=== PATIENT | female | born 1960 | race Caucasian/White ===

== ENCOUNTER 2019-03-17 13:52 | Emergency (ER) | payer SELFPAY ==
--- NOTE | 2019-03-17 14:45 | RAD ---
EXAM: Chest 2 views: HISTORY: Cough and fever COMPARISON: None. FINDINGS: There is a normal-sized cardiomediastinal silhouette. A cardiac monitoring device projects over the left chest wall. There is no evidence of consolidation, mass, or pleural effusion. The bones are unremarkable. IMPRESSION: No evidence of acute cardiopulmonary disease
== END 2019-03-17 15:10 | disposition home or self-care (01) ==
LOC: ERS 13:52
DX: J10.1 Influenza due to other identified influenza virus with other respiratory manifestations (principal)
CPT/HCPCS: 71046; 87804

== ENCOUNTER 2019-04-19 13:21 | Emergency (ER) | payer SELFPAY ==
--- NOTE | 2019-04-19 14:05 | RAD ---
RIGHT SHOULDER RADIOGRAPHS 3 VIEWS: DATE: 04/19/2019. PROVIDED CLINICAL HISTORY: Pain. FINDINGS: There is no evidence for a fracture or other acute osseous abnormality. If there is persistent clini martine concern, conservative management and followup imaging are advised. IMPRESSION: As above. POS: T[facility]
[2019-04-19] MEDS ORDERED: Ketorolac Tromethamine 60 MG/2 ML VIAL ONE (14:17)
[2019-04-19] MEDS ORDERED: Morphine 4 MG/ML VIAL ONE (14:17)
[2019-04-19] MEDS ORDERED: Ondansetron ODT 4 MG TAB ONE (15:09)
== END 2019-04-19 15:25 | disposition home or self-care (01) ==
LOC: ERS 13:21
DX: M25.511 Pain in right shoulder (principal); I10 Essential (primary) hypertension; F32.9 Major depressive disorder, single episode, unspecified; Z79.899 Other long term (current) drug therapy
CPT/HCPCS: 96372; J1885; J2270; Q0162

== ENCOUNTER 2019-05-22 20:32 | Inpatient (IN) | payer SELFPAY ==
[2019-05-22 21:00] LABS: #Basophils 0.1 thou/uL (0.0-0.2); #Eosinphils 0.6 thou/uL (0.0-0.7); #Lymphocytes 2.3 thou/uL (1.20-3.40); #Monocytes 0.8 thou/uL (0.11-0.59); #Neutrophils 4.7 thou/uL (1.40-6.50); %Basophils 0.6 % (0.0-1.0); %Eosinophils 6.8 % (0.0-10.0); %Lymphocytes 27.4 % (21.0-51.0); %Monocytes 8.9 % (0.0-10.0); %Neutrophils 56.2 % (42.0-75.0); Mean Corpuscular HGB CONC 33.8 g/dL (32.0-36.0); Mean Corpuscular Volume 88.9 fL (78.0-98.0); Mean Platelet Volume 8.5 fL (7.4-10.4); Platelet Count 199 thou/uL (130-400); RBC Distribution Width 11.9 % (11.5-14.5); Red Blood Cell (RBC) Count 4.32 mill/uL (4.20-5.40); White Blood Cell (WBC) Count 8.4 thou/uL (4.8-10.8)
[2019-05-22] MEDS ORDERED: Morphine 4 MG/ML VIAL ONE ×2 (21:05→23:06)
[2019-05-22] MEDS ORDERED: Ketorolac Tromethamine 30 MG/ML VIAL ONE (21:05)
[2019-05-22] MEDS ORDERED: Ondansetron PF 4 MG/2 ML Vial ONE ×2 (21:05→23:06)
[2019-05-22 21:56] LABS: Bacteria/HPF 1+ HPF (None Seen); Bilirubin Negative (Negative); Blood, Urine Negative (Negative); Clarity Clear (Clear); Glucose, Urine (Dipstick) Normal (Negative); Leukocyte 250 Leu/uL (Negative); Nitrite Negative (Negative); Protein, Urine (Dipstick) Negative (Neg-Trace); RBC/HPF 0-3 HPF (0-3); Squamous Epithelial 0-3 HPF (0-3); Urobilinogen Normal mg/dL (Less than 2)
[2019-05-22 22:06] LABS: Albumin 4.6 g/dL (3.5-5.0)
[2019-05-22 22:07] LABS: Chloride 107 mmol/L (98-107); Potassium 3.5 mmol/L (3.5-5.1); Sodium 140 mmol/L (136-145)
[2019-05-22 22:08] LABS: Calcium 9.9 mg/dL (7.8-10.44); Glucose 88 mg/dL (70-105)
[2019-05-22 22:09] LABS: Globulin 3.1 g/dL (2.4-3.5); Protein, Total 7.7 g/dL (6.0-8.3)
[2019-05-22 22:10] LABS: Anion Gap 14 mmol/L (10-20); Bilirubin, Total 0.5 mg/dL (0.2-1.2); Carbon Dioxide 23 mmol/L (22-29)
[2019-05-22 22:11] LABS: Alkaline Phosphatase 111 U/L (40-110)
[2019-05-22 22:12] LABS: BUN (Urea Nitrogen) 16 mg/dL (9.8-20.1); Calc. Creatinine Clearance 0 mL/min (70-130); Estimated GFR-MDRD 69
[2019-05-22 22:13] LABS: AST (SGOT) 23 U/L (5-34)
[2019-05-22 22:14] LABS: ALT (SGPT) 15 U/L (8-55)
[2019-05-22 22:15] LABS: Lipase 1457 U/L (8-78)
[2019-05-23] MEDS ORDERED: Senokot S 8.6-50 MG TAB PO PRN (02:24)
[2019-05-23] MEDS ORDERED: Acetaminophen 325 MG TAB PO PRN (02:24)
--- NOTE | 2019-05-23 02:55 | PDOC.HHP ---
Hospitalist HPI - History of Present Illness Abdominal pain History of Present Illness: 58 yo CF with a history of recurrent pancreatitis presents to ER due to sudden onset abdominal pain. She states that she returned from work yesterday evening and started having stabbing 10/10 pain in her mid abdomen with radiation to the back without any aggravating or relieving factors. The pain gradually worsened and she presented to the ER. Pain was associated with nausea and dry heaves. No vomiting, fever, chills, diarrhea. She reports constipation. No CP, SOB, Cough, wheezing, recent travel history, sick contacts. 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 She recently moved to [place], [place] from [place], [place]. She states she has pancreatitis 1-2 times/yr and that the etiology is unknown. ED Course: Found to have elevated lipase. Diagnosed with pancreatitis and being admitted. Hospitalist ROS - Review of Systems All other systems reviewed; all pertinent +/- noted in HPI/Subj Hospitalist History - Past Medical History Source: patient Gastrointestinal: reports: Peptic ulcer disease, Other (Recurrent pancreatitis) Musculoskeletal: reports: Chronic low back pain - Past Surgical History Past Surgical History: reports: Appendectomy, Cholecystectomy, Hysterectomy, Other (Back surgeries) - Family History Family History: reports: diabetes mellitus (mother), hypertension (father) - Social History Smoking Status: Never smoker Alcohol: reports: Occassional Drugs: reports: none Living Situation: Alone Activity level: independent ambulation - Exam General Appearance: awake alert, ill appearing Eye: PERRL, anicteric sclera ENT: normocephalic atraumatic, no oropharyngeal lesions, moist mucosa Neck: supple, symmetric, no JVD, no thyromegaly, no lymphadenopathy Heart: RRR, no murmur, no gallops, no rubs, normal peripheral pulses Respiratory: CTAB, no wheezes, no rales, no ronchi, normal chest expansion, no tachypnea Gastrointestinal: soft, non-distended, normal bowel sounds, no palpable masses, no guarding, no rigidity, tender to palpation (epigastric and umbilical regions) Extremities: no cyanosis, no clubbing, no edema Skin: normal turgor, no lesions, no rashes Neurological: cranial nerve grossly intact, normal sensation to touch, no weakness, no focal deficits Musculoskeletal: normal tone, normal strength, no muscle wasting Psychiatric: normal affect, normal behavior, A&O x 3 Hospitalist Results - Labs Result Diagrams: 05/22/19 20:52 05/22/19 21:50 Lab results: WBC 8.4 thou/uL (4.8-10.8) 05/22/19 20:52 Hgb 13.0 g/dL (12.0-16.0) 05/22/19 20:52 Hct 38.4 % (36.0-47.0) 05/22/19 20:52 MCV 88.9 fL (78.0-98.0) 05/22/19 20:52 Plt Count 199 thou/uL (130-400) 05/22/19 20:52 Neutrophils % 56.2 % (42.0-75.0) 05/22/19 20:52 Sodium 140 mmol/L (136-145) 05/22/19 21:50 Potassium 3.5 mmol/L (3.5-5.1) 05/22/19 21:50 Chloride 107 mmol/L (98-107) 05/22/19 21:50 Carbon Dioxide 23 mmol/L (22-29) 05/22/19 21:50 BUN 16 mg/dL (9.8-20.1) 05/22/19 21:50 Creatinine 0.84 mg/dL (0.6-1.1) 05/22/19 21:50 Glucose 88 mg/dL (70-105) 05/22/19 21:50 Calcium 9.9 mg/dL (7.8-10.44) 05/22/19 21:50 Total Bilirubin 0.5 mg/dL (0.2-1.2) 05/22/19 21:50 AST 23 U/L (5-34) 05/22/19 21:50 ALT 15 U/L (8-55) 05/22/19 21:50 Alkaline Phosphatase 111 U/L (40-110) H 05/22/19 21:50 Serum Total Protein 7.7 g/dL (6.0-8.3) 05/22/19 21:50 Albumin 4.6 g/dL (3.5-5.0) 05/22/19 21:50 Lipase 1457 U/L (8-78) H 05/22/19 21:50 Urine Ketones Negative mg/dL (Negative) 05/22/19 21:39 Urine Blood Negative (Negative) 05/22/19 21:39 Urine Nitrite Negative (Negative) 05/22/19 21:39 Ur Leukocyte Esterase 250 Gabby/uL (Negative) A 05/22/19 21:39 Urine RBC 0-3 HPF (0-3) 05/22/19 21:39 Urine WBC 11-20 HPF (0-3) A 05/22/19 21:39 Ur Squamous Epith Cells 0-3 HPF (0-3) 05/22/19 21:39 Urine Bacteria 1+ HPF (None Seen) A 05/22/19 21:39 Hospitalist H&P A/P - Problem (1) Pancreatitis Code(s): K85.90 - ACUTE PANCREATITIS WITHOUT NECROSIS OR INFECTION, UNSP Status: Acute Qualifiers: Chronicity: acute Pancreatitis type: unspecified pancreatitis type Acute pancreatitis complication: unspecified Qualified Code(s): K85.90 - Acute pancreatitis without necrosis or infection, unspecified Assessment and Plan: Admit to inpatient status. Expected to stay at least 2 midnights. High risk due to need for IV fluids and monitoring for diet tolerance Clear liquid diet IV LR with KCl GI consult s/p cholecystectomy and denies ETOH use Will obtain lipid panel and IgG subclass Pain control Patient denies melena or hematochezia. PUD may also be responsible for her pain. Will defer to GI regarding possible EGD. 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 However, prior Tramadol prescription was from Mar, 2018 - Plan Plan: CODE STATUS - FULL CODE Sister is health care proxy
[2019-05-23] MEDS: Potassium Chloride 20 MEQ in Lactated Ringer's 1,000 ML IV SCH ×3 (03:40→18:00)
[2019-05-23] MEDS ORDERED: Ondansetron PF 4 MG/2 ML Vial ONE (03:53)
[2019-05-23] MEDS ORDERED: Morphine 2 MG/ML SYRINGE ONE (03:53)
[2019-05-23] MEDS: Ondansetron PF 4 MG/2 ML Vial IVP PRN ×3 (03:55→16:28)
[2019-05-23] MEDS: Morphine 2 MG/ML SYRINGE SLOW IVP PRN ×5 (03:57→23:01)
[2019-05-23 04:06] VITALS: BMI 22.6
[2019-05-23 04:21] LABS: #Eosinphils 0.4 thou/uL (0.0-0.7); #Lymphocytes 1.4 thou/uL (1.20-3.40); #Monocytes 0.7 thou/uL (0.11-0.59); #Neutrophils 5.1 thou/uL (1.40-6.50); %Basophils 0.3 % (0.0-1.0); %Eosinophils 5.3 % (0.0-10.0); %Lymphocytes 18.6 % (21.0-51.0); %Monocytes 9.3 % (0.0-10.0); %Neutrophils 66.5 % (42.0-75.0); Hemoglobin 12.7 g/dL (12.0-16.0); Mean Corpuscular HGB CONC 33.3 g/dL (32.0-36.0); Mean Corpuscular Hemoglobin 30.1 pg (27.0-31.0); Mean Corpuscular Volume 90.4 fL (78.0-98.0); Mean Platelet Volume 8.8 fL (7.4-10.4); Platelet Count 161 thou/uL (130-400); Red Blood Cell (RBC) Count 4.22 mill/uL (4.20-5.40); White Blood Cell (WBC) Count 7.7 thou/uL (4.8-10.8)
[2019-05-23 04:29] LABS: ALT (SGPT) 51 U/L (8-55); AST (SGOT) 103 U/L (5-34); Albumin 3.7 g/dL (3.5-5.0); Alkaline Phosphatase 105 U/L (40-110); Anion Gap 12 mmol/L (10-20); BUN (Urea Nitrogen) 16 mg/dL (9.8-20.1); Bilirubin, Total 0.6 mg/dL (0.2-1.2); Calc. Creatinine Clearance 82 mL/min (70-130); Calcium 8.8 mg/dL (7.8-10.44); Carbon Dioxide 18 mmol/L (22-29); Cardiac Risk 2.2 (Less than 4.5); Chloride 111 mmol/L (98-107); Cholesterol 170 mg/dl (< 200 Desired); Estimated GFR-MDRD 87; Globulin 2.5 g/dL (2.4-3.5); Glucose 104 mg/dL (70-105); HDL Cholesterol 77 mg/dL (>60 Neg Risk); LDL Cholesterol, Calculated 85 mg/dL; Lipase 494 U/L (8-78); Protein, Total 6.2 g/dL (6.0-8.3); Sodium 137 mmol/L (136-145); Triglycerides 39 mg/dL (Less than 150)
[2019-05-23] MEDS: Enoxaparin Sodium 40 MG/0.4 ML SYRINGE SC SCH (08:47)
--- NOTE | 2019-05-23 13:26 | PDOC.HOSPP ---
- Subjective Encounter Date: 05/23/19 Encounter Time: 08:40 Subjective: abd pain and nausea is better this am - Objective Vital Signs & Weight: Vital Signs (12 hours) Temp Pulse Resp BP Pulse Ox 05/23/19 11:39 98.0 F 72 18 138/75 97 05/23/19 08:00 98.3 F 68 20 128/70 96 05/23/19 05:50 98.1 F 68 20 160/74 H 99 Weight Weight 132 lb Result Diagrams: 05/23/19 03:57 05/23/19 03:57 Hospitalist ROS - Medication Medications: Active Medications Generic Name Dose Route Start Last Admin Trade Name Freq PRN Reason Stop Dose Admin Enoxaparin Sodium 40 mg 05/23/19 09:00 05/23/19 08:47 Lovenox SC 40 mg 0900 ROSSY Administration Potassium Chloride 20 meq/ 1,010 mls @ 100 mls/hr 05/23/19 03:00 05/23/19 13: 02 Lactated Ringer's IV Not Given .Q10H6M ROSSY Morphine Sulfate 2 mg 05/23/19 02:53 05/23/19 08:48 Morphine SLOW IVP 2 mg Q4H PRN Administration Severe Pain (7-10) Ondansetron HCl 4 mg 05/23/19 02:24 05/23/19 10:15 Zofran IVP 4 mg Q6H PRN Administration Nausea/Vomiting - Exam General Appearance: awake alert Eye: PERRL, anicteric sclera ENT: no oropharyngeal lesions, moist mucosa Neck: supple, no JVD Heart: RRR, no murmur Respiratory: no wheezes, no rales Gastrointestinal: soft, non-distended, normal bowel sounds Gastrointestinal - other findings: mild epigastric pain Extremities: no cyanosis, no edema Neurological: cranial nerve grossly intact, no focal deficits Psychiatric: normal affect, A&O x 3 Hosp A/P (1) Acute pancreatitis Code(s): K85.90 - ACUTE PANCREATITIS WITHOUT NECROSIS OR INFECTION, UNSP Status: Acute Qualifiers: Pancreatitis type: idiopathic (2) Chronic back pain Code(s): M54.9 - DORSALGIA, UNSPECIFIED; G89.29 - OTHER CHRONIC PAIN Status: Chronic Qualifiers: Back pain location: low back pain (3) GERD (gastroesophageal reflux disease) Code(s): K21.9 - GASTRO-ESOPHAGEAL REFLUX DISEASE WITHOUT ESOPHAGITIS Status: Chronic Qualifiers: Esophagitis presence: esophagitis presence not specified Qualified Code(s) : K21.9 - Gastro-esophageal reflux disease without esophagitis - Plan on iv hydration, morphine and narco prn GI consult will obtain CT abd lipid profile is normal h/o pancreatitis 2x/yr starting from 2009, no alc usage Last BM was on tuesday, will add stool softeners
[2019-05-23] MEDS ORDERED: Bisacodyl 10 MG SUPP PR PRN (13:28)
[2019-05-23] MEDS ORDERED: predniSONE 50 MG TAB PO SCH (20:00)
[2019-05-23] MEDS: Docusate 100 MG CAP PO SCH (20:35)
[2019-05-24] MEDS: Potassium Chloride 20 MEQ in Lactated Ringer's 1,000 ML IV SCH ×3 (00:20→16:00)
[2019-05-24] MEDS ORDERED: predniSONE 50 MG TAB PO SCH ×2 (02:00→08:00)
[2019-05-24] MEDS ORDERED: diphenhydrAMINE 50 MG CAP PO SCH (08:00)
[2019-05-24] MEDS: Docusate 100 MG CAP PO SCH ×2 (08:03→21:11)
[2019-05-24] MEDS: Enoxaparin Sodium 40 MG/0.4 ML SYRINGE SC SCH (08:04)
[2019-05-24] MEDS: Polyethylene Glycol 3350 17 GM Packet PO SCH (08:04)
[2019-05-24] MEDS: Morphine 2 MG/ML SYRINGE SLOW IVP PRN ×3 (08:22→21:11)
[2019-05-24] MEDS: Ondansetron PF 4 MG/2 ML Vial IVP PRN ×3 (08:22→21:13)
--- NOTE | 2019-05-24 09:43 | CT ---
CT OF THE ABDOMEN AND PELVIS WITH AND WITHOUT IV CONTRAST INDICATION: History of chronic pancreatitis now with middle to left upper quadrant abdominal pain wit h nausea and vomiting COMPARISON: None FINDINGS: ABDOMEN: Lung bases: Mild bibasilar atelectasis Liver: There is focal fatty demonstration near the falciform ligament. Gallbladder: Surgically absent Pancreas: There is inflammatory stranding surrounding the pancreas. There is enhancement of the pancr eatic parenchyma. No areas of cystic necrosis or peripancreatic fluid collection is demonstrated. Adrenal glands: Normal. Spleen: Normal. Kidneys and ureters: Small cyst is seen involving upper pole right kidney. No hydronephrosis is demon strated. Vasculature: There are mild vascular calcifications seen involving the visualized vasculature. Lymph nodes:No lymphadenopathy. Free fluid in abdomen:A small amount of fluid is seen within the anterior pararenal space. There is m ild edema involving the central mesenteric root. PELVIS: Small and large bowel: There is a mild amount retained stool within colon. Appendix:Not definitely seen Bladder: Partially decompressed Rectal and perirectal soft tissues:Normal. Reproductive structures: Surgically absent Free fluid in pelvis: Mild free fluid Lymphadenopathy pelvis: No lymphadenopathy is evident. Osseous structures: There is postsurgical change of an L5-S1 anterior and posterior interbody fusion. No acute fracture or subluxation demonstrated. There is scattered degenerative and osteoarthritic changes. Soft tissues:Normal. IMPRESSION: 1. Noncomplicated acute pancreatitis 2. Mild bibasilar atelectasis. 3. Focal verification of the false form ligament. 4. Cholecystectomy, appendectomy and hysterectomy
--- NOTE | 2019-05-24 10:50 | CON ---
DATE OF CONSULTATION: 05/23/2019 REASON FOR CONSULTATION: Abdominal pain, nausea, vomiting, and evidence of pancreatitis. HISTORY OF PRESENT ILLNESS: Ms. Cynthia Joyce is a very pleasant 58-year-old female who moved to [facility] about September of 2018. She was actually living in [place] before for a long time. The patient has had a gallbladder surgery in the for gallstones. The patient has done well for the next almost 20 years. Since 2013, she has had recurrent pancreatitis of unknown etiology. She has been hospitalized several times. She tells me that once or twice in a year, she had pancreatitis and gets admitted to the hospital. The last time she was in [facility] was in [facility] in 2016. She tells me she had an EGD done and was told to have a stomach ulcer. She was traveling in [place] in 2018 and she was hospitalized twice in [place]. Again, there is no etiology for the pancreatitis . The patient has had a CAT scan done in the past. The patient was doing well until yesterday afternoon around 3 p.m. She started having abdominal pain over the epigastric area and going towards the back. She had nausea and vomiting. No history of any fever or chills. It is the same kind of pain she gets every time she gets pancreatitis. The patient was told to have pancreatitis of unknown etiology before. The patient seldom drinks alcohol. Last time she had a glass of wine was at Thanksgiving time. She usually does not drink alcohol. She is not taking any medications to cause the pancreatitis. She also has hyperlipidemia. Her lipase was markedly elevated on admission yesterday. The lipase was 1457 yesterday, today dropping to 494. Amylase 242. Her liver function tests yesterday were actually normal with the AST of 23, ALT 15, alkaline phosphatase 111. Today, the AST has gone up to 103. She is actually feeling a little better today although she continued to have abdominal pain, but not as bad as before. She had no nausea or vomiting today. No relevant history. ALLERGIES: ALLERGIC TO IODINE AND CODEINE. SOCIAL HISTORY: The patient does not smoke. She seldom drinks alcohol. No history of drug use. MEDICAL ILLNESSES: None except for recurrent pancreatitis. No history of diabetes, hypertension, or asthma. PAST SURGICAL HISTORY: 1. Status post appendectomy. 2. Status post cholecystectomy. 3. Status post hysterectomy. Other surgeries include EGD x2 for ulcer disease in the past. FAMILY HISTORY: Mother, sister and father all had their gallbladder removed. Mother has diabetes mellitus. No family history of any cancer. MEDICATIONS: At home, none. REVIEW OF SYSTEMS: 10-point of system review. CONSTITUTIONAL: No history any fever. No history of weight loss, has good exercise tolerance. HEAD: No chronic headache. No dizziness. EYES: No impaired vision. No diplopia. EARS: No hearing loss. No bleeding. NOSE: No nosebleed. THROAT: No sore throat or dysphagia. NECK: No stiffness or limitation of movement. BREASTS: No breast masses or discharge. LUNGS: No chronic coughing, hemoptysis, dyspnea. CARDIOVASCULAR: No chest pain. No palpitation, dyspnea, orthopnea, PND. : No dysuria or hematuria. MUSCULOSKELETAL: Nonrelevant. NEURO: Nonrelevant. ENDOCRINE: Nonrelevant. HEMATOLOGICAL: Nonrelevant. PSYCHIATRIC: Nonrelevant. PHYSICAL EXAMINATION: GENERAL: Appears comfortable, in no acute distress. She is a good historian. VITAL SIGNS: Afebrile. Pulse is 72, blood pressure 138/75. HEENT: Conjunctivae are clear. NECK: Supple. No adenitis or thyromegaly noted. CARDIOVASCULAR: First and second heart sounds heard. LUNGS: Clear to auscultation. ABDOMEN: Soft. Abdomen is nondistended. Abdomen is tender over the epigastric area and periumbilical area. There is no rebound or guarding. Bowel sounds are active. EXTREMITIES: Reveal no edema. LABORATORY DATA: Lab data shows normal chem 7, BUN 16, creatinine 0.69, glucose 104, calcium 8.8, bilirubin 0.6. AST has gone up to 103 today, ALT 51, alkaline phosphatase 105, albumin is 3.7. LDL is 85, HDL is 77. Amylase is 242, lipase 1457 yesterday, dropping to 494 today. CLINICAL IMPRESSION: 1. A 58-year-old female with previous cholecystectomy for gallstones in . She has had recurrent episodes of pancreatitis over the last 6 years. She has had at least one or two episodes every year. Last episode was in 2019 and hospitalized in [place]. She was told to have pancreatitis of unknown etiology. There is also a possibility of the patient passing microlithiasis common bile duct which could also account for pancreatitis. 2. Previous cholecystectomy. 3. Appendectomy. 4. Hysterectomy. 5. History of peptic ulcer and had an EGD done in [facility] in 2017. RECOMMENDATION: 1. N.p.o. 2. IV fluids. 3. Analgesics. 4. Follow up LFTs. 5. Consider MRCP to rule out any biliary tract disease, common bile duct stone. Job ID: [id number]
--- NOTE | 2019-05-24 11:34 | PDOC.HOSPP ---
- Subjective Encounter Date: 05/24/19 Encounter Time: 09:00 Subjective: abd pain is better is drinking contrast for CT is on prednisone for iodine allergy - Objective Vital Signs & Weight: Vital Signs (12 hours) Temp Pulse Resp BP Pulse Ox 05/24/19 08:23 96 05/24/19 04:00 97.3 F L 74 16 130/70 96 05/24/19 00:00 98.6 F 86 16 144/78 H 96 Weight Weight 132 lb Result Diagrams: 05/23/19 03:57 05/23/19 03:57 Hospitalist ROS - Medication Medications: Active Medications Generic Name Dose Route Start Last Admin Trade Name Freq PRN Reason Stop Dose Admin Docusate Sodium 100 mg 05/23/19 21:00 05/24/19 08:03 Colace PO 100 mg BID ROSSY Administration Enoxaparin Sodium 40 mg 05/23/19 09:00 05/24/19 08:04 Lovenox SC 40 mg 0900 ROSSY Administration Potassium Chloride 20 meq/ 1,010 mls @ 100 mls/hr 05/23/19 03:00 05/24/19 03: 40 Lactated Ringer's IV 1,010 mls .Q10H6M ROSSY Administration Morphine Sulfate 2 mg 05/23/19 02:53 05/24/19 08:22 Morphine SLOW IVP 2 mg Q4H PRN Administration Severe Pain (7-10) Ondansetron HCl 4 mg 05/23/19 02:24 05/24/19 08:22 Zofran IVP 4 mg Q6H PRN Administration Nausea/Vomiting Pantoprazole Sodium 40 mg 05/24/19 09:00 05/24/19 08:03 Protonix PO 40 mg DAILY ROSSY Administration Polyethylene Glycol 17 gm 05/24/19 09:00 05/24/19 08:04 Miralax PO 17 gm DAILY ROSSY Administration - Exam General Appearance: awake alert Eye: PERRL, anicteric sclera ENT: no oropharyngeal lesions, moist mucosa Neck: supple, no JVD Heart: RRR, no murmur Respiratory: no wheezes, no rales Gastrointestinal: soft, non-distended, normal bowel sounds, no guarding, no rigidity Extremities: no cyanosis, no edema Neurological: cranial nerve grossly intact, no focal deficits Psychiatric: normal affect, A&O x 3 Hosp A/P (1) Acute pancreatitis Code(s): K85.90 - ACUTE PANCREATITIS WITHOUT NECROSIS OR INFECTION, UNSP Status: Acute Qualifiers: Pancreatitis type: idiopathic (2) Chronic back pain Code(s): M54.9 - DORSALGIA, UNSPECIFIED; G89.29 - OTHER CHRONIC PAIN Status: Chronic Qualifiers: Back pain location: low back pain (3) GERD (gastroesophageal reflux disease) Code(s): K21.9 - GASTRO-ESOPHAGEAL REFLUX DISEASE WITHOUT ESOPHAGITIS Status: Chronic Qualifiers: Esophagitis presence: esophagitis presence not specified Qualified Code(s) : K21.9 - Gastro-esophageal reflux disease without esophagitis - Plan on iv hydration, morphine and narco prn CT abd shows findings of simple pancreatitis, no necrosis or phlegmon lipid profile is normal h/o pancreatitis 2x/yr starting from 2009, no alc usage hemostable oral fat free diet
[2019-05-24] MEDS ORDERED: Iopamidol-370 76% 500 ML 1 ML ONE (13:40)
--- NOTE | 2019-05-24 18:35 | PRG ---
DATE OF SERVICE: 05/24/2019 SUBJECTIVE: This is a 58-year-old female with previous cholecystectomy in 1989, for gallstones. The patient has had recurrent pancreatitis for nearly 10 years. The last episode was in 2019, when she was in [place]. She does not drink alcohol. Her LFTs remain . She had abdominal CAT scan done, which revealed no pathology except for peripancreatic inflammatory changes. Abdominal pain is getting better, but not completely gone. She had no nausea, no vomiting. OBJECTIVE: VITAL SIGNS: Afebrile, pulse is 81, blood pressure 154/83. HEENT: Conjunctivae are clear. CARDIOVASCULAR: Within normal limits. LUNGS: Within normal limits. GI: Abdomen is soft. Abdomen is nondistended. Abdomen is tender over the epigastric area without rebound or guarding. No organomegaly. Bowel sounds normal. CLINICAL IMPRESSION: 1. Pancreatitis, recurrent. Abdominal CAT scan negative today. Recommend to follow up amylase and lipase. 2. Diet as tolerated. Job ID: [id number]
[2019-05-25] MEDS: Morphine 2 MG/ML SYRINGE SLOW IVP PRN ×5 (01:20→17:56)
[2019-05-25] MEDS: Potassium Chloride 20 MEQ in Lactated Ringer's 1,000 ML IV SCH ×3 (02:40→23:00)
[2019-05-25] MEDS: Ondansetron PF 4 MG/2 ML Vial IVP PRN ×3 (06:08→20:15)
[2019-05-25 08:52] LABS: #Eosinphils 0.1 thou/uL (0.0-0.7); #Monocytes 0.7 thou/uL (0.11-0.59); #Neutrophils 6.6 thou/uL (1.40-6.50); %Basophils 0.4 % (0.0-1.0); %Eosinophils 1.3 % (0.0-10.0); %Neutrophils 70.3 % (42.0-75.0); Mean Corpuscular HGB CONC 34.3 g/dL (32.0-36.0); Mean Corpuscular Hemoglobin 30.9 pg (27.0-31.0); Mean Corpuscular Volume 90.3 fL (78.0-98.0); Mean Platelet Volume 8.9 fL (7.4-10.4); Platelet Count 178 thou/uL (130-400); RBC Distribution Width 11.9 % (11.5-14.5); Red Blood Cell (RBC) Count 3.88 mill/uL (4.20-5.40); White Blood Cell (WBC) Count 9.4 thou/uL (4.8-10.8)
[2019-05-25] MEDS: Enoxaparin Sodium 40 MG/0.4 ML SYRINGE SC SCH (08:57)
[2019-05-25 09:13] LABS: ALT (SGPT) 26 U/L (8-55); AST (SGOT) 18 U/L (5-34); Albumin 3.2 g/dL (3.5-5.0); Alkaline Phosphatase 91 U/L (40-110); Anion Gap 9 mmol/L (10-20); BUN (Urea Nitrogen) 15 mg/dL (9.8-20.1); Bilirubin, Total 0.3 mg/dL (0.2-1.2); Calc. Creatinine Clearance 72 mL/min (70-130); Calcium 9.4 mg/dL (7.8-10.44); Carbon Dioxide 27 mmol/L (22-29); Chloride 108 mmol/L (98-107); Estimated GFR-MDRD 74; Globulin 2.6 g/dL (2.4-3.5); Glucose 109 mg/dL (70-105); Potassium 4.4 mmol/L (3.5-5.1); Protein, Total 5.8 g/dL (6.0-8.3); Sodium 140 mmol/L (136-145)
[2019-05-25] MEDS: Docusate 100 MG CAP PO SCH ×2 (10:19→20:14)
[2019-05-25] MEDS: Polyethylene Glycol 3350 17 GM Packet PO SCH (10:19)
[2019-05-25] MEDS: HYDROcodone/Acetaminophen 5/325 mg Tablet PO PRN ×2 (12:07→20:14)
[2019-05-25 13:37] LABS: IgG Subclass 1 248 mg/dL (248-810); IgG Subclass 2 221 mg/dL (130-555); IgG Subclass 3 36 mg/dL (15-102); Immunoglobulin - G (Sendout) 552 mg/dL (700-1600)
--- NOTE | 2019-05-25 16:36 | PDOC.HOSPP ---
- Subjective Encounter Date: 05/25/19 Encounter Time: 08:00 Subjective: c/o abdominal worsening after eating yogurt last evening, has spasms more than pain no nausea or vomiting. is ambulating in room - Objective Vital Signs & Weight: Vital Signs (12 hours) Temp Pulse Resp BP Pulse Ox 05/25/19 16:02 97.8 F 65 18 166/88 H 98 05/25/19 08:09 97.8 F 72 14 156/78 H 98 Weight Weight 132 lb I&O: 05/24/19 05/25/19 05/26/19 06:59 06:59 06:59 Intake Total 1380 Balance 1380 Result Diagrams: 05/25/19 08:38 05/25/19 08:38 Hospitalist ROS - Medication Medications: Active Medications Generic Name Dose Route Start Last Admin Trade Name Freq PRN Reason Stop Dose Admin Hydrocodone Bitart/Acetaminophen 1 tab 05/23/19 21:14 05/25/19 12:07 [place] 5/325 PO 1 tab Q4H PRN Administration Moderate Pain (4-6) Bisacodyl 10 mg 05/23/19 13:28 05/25/19 12:07 Dulcolax [place] 10 mg Q8H PRN Administration Constipation Docusate Sodium 100 mg 05/23/19 21:00 05/25/19 10:19 Colace PO Not Given BID ROSSY Enoxaparin Sodium 40 mg 05/23/19 09:00 05/25/19 08:57 Lovenox SC 40 mg 0900 ROSSY Administration Potassium Chloride 20 meq/ 1,010 mls @ 100 mls/hr 05/23/19 03:00 05/25/19 15: 18 Lactated Ringer's IV 1,010 mls .Q10H6M ROSSY Administration Morphine Sulfate 2 mg 05/23/19 02:53 05/25/19 14:09 Morphine SLOW IVP 2 mg Q4H PRN Administration Severe Pain (7-10) Ondansetron HCl 4 mg 05/23/19 02:24 05/25/19 15:22 Zofran IVP 4 mg Q6H PRN Administration Nausea/Vomiting Pantoprazole Sodium 40 mg 05/24/19 09:00 05/25/19 08:56 Protonix PO 40 mg DAILY ROSSY Administration Polyethylene Glycol 17 gm 05/24/19 09:00 05/25/19 10:19 Miralax PO Not Given DAILY ROSSY - Exam General Appearance: awake alert Eye: PERRL, anicteric sclera ENT: no oropharyngeal lesions, moist mucosa Neck: supple, no JVD Heart: RRR, no murmur Respiratory: no wheezes, no rales Gastrointestinal: soft, non-distended, normal bowel sounds, no guarding, no rigidity Extremities: no cyanosis, no edema Neurological: cranial nerve grossly intact, no focal deficits Psychiatric: normal affect, A&O x 3 Hosp A/P (1) Acute pancreatitis Code(s): K85.90 - ACUTE PANCREATITIS WITHOUT NECROSIS OR INFECTION, UNSP Status: Acute Qualifiers: Pancreatitis type: idiopathic (2) Chronic back pain Code(s): M54.9 - DORSALGIA, UNSPECIFIED; G89.29 - OTHER CHRONIC PAIN Status: Chronic Qualifiers: Back pain location: low back pain (3) GERD (gastroesophageal reflux disease) Code(s): K21.9 - GASTRO-ESOPHAGEAL REFLUX DISEASE WITHOUT ESOPHAGITIS Status: Chronic Qualifiers: Esophagitis presence: esophagitis presence not specified Qualified Code(s) : K21.9 - Gastro-esophageal reflux disease without esophagitis - Plan on iv hydration, morphine and narco prn, bentyl tid. CT abd shows findings of simple pancreatitis, no necrosis or phlegmon lipid profile is normal h/o pancreatitis 2x/yr starting from 2009, no alc usage hemostable full liquid fat free diet
[2019-05-25] MEDS: Dicyclomine 20 MG TAB PO SCH (20:14)
[2019-05-26] MEDS: Morphine 2 MG/ML SYRINGE SLOW IVP PRN ×5 (00:01→20:30)
[2019-05-26] MEDS: Potassium Chloride 20 MEQ in Lactated Ringer's 1,000 ML IV SCH ×4 (00:31→20:28)
[2019-05-26] MEDS: Ondansetron PF 4 MG/2 ML Vial IVP PRN ×2 (06:09→13:09)
[2019-05-26] MEDS: Dicyclomine 20 MG TAB PO SCH ×3 (08:12→20:30)
[2019-05-26] MEDS: Enoxaparin Sodium 40 MG/0.4 ML SYRINGE SC SCH (08:12)
[2019-05-26] MEDS: HYDROcodone/Acetaminophen 5/325 mg Tablet PO PRN (08:13)
[2019-05-26] MEDS: Polyethylene Glycol 3350 17 GM Packet PO SCH (10:38)
[2019-05-26] MEDS: Docusate 100 MG CAP PO SCH ×2 (10:38→20:29)
--- NOTE | 2019-05-26 13:25 | PDOC.HOSPP ---
- Subjective Encounter Date: 05/26/19 Encounter Time: 11:00 Subjective: still c/o abd pain on full liquid diet but is comfortable eating jello - Objective Vital Signs & Weight: Vital Signs (12 hours) Temp Pulse Resp BP Pulse Ox 05/26/19 07:13 97.9 F 60 17 147/80 H 96 Weight Weight 132 lb I&O: 05/25/19 05/26/19 05/27/19 06:59 06:59 07:59 Intake Total 2580 Balance 2580 Result Diagrams: 05/25/19 08:38 05/25/19 08:38 Hospitalist ROS - Medication Medications: Active Medications Generic Name Dose Route Start Last Admin Trade Name Freq PRN Reason Stop Dose Admin Hydrocodone Bitart/Acetaminophen 1 tab 05/23/19 21:14 05/26/19 08:13 [place] 5/325 PO 1 tab Q4H PRN Administration Moderate Pain (4-6) Bisacodyl 10 mg 05/23/19 13:28 05/25/19 12:07 Dulcolax [place] 10 mg Q8H PRN Administration Constipation Dicyclomine HCl 20 mg 05/25/19 21:00 05/26/19 08:12 Bentyl PO 20 mg TID ROSSY Administration Docusate Sodium 100 mg 05/23/19 21:00 05/26/19 10:38 Colace PO Not Given BID ROSSY Enoxaparin Sodium 40 mg 05/23/19 09:00 05/26/19 08:12 Lovenox SC 40 mg 0900 ROSSY Administration Potassium Chloride 20 meq/ 1,010 mls @ 100 mls/hr 05/23/19 03:00 05/26/19 11: 19 Lactated Ringer's IV 1,010 mls .Q10H6M ROSSY Administration Morphine Sulfate 2 mg 05/23/19 02:53 05/26/19 10:45 Morphine SLOW IVP 2 mg Q4H PRN Administration Severe Pain (7-10) Ondansetron HCl 4 mg 05/23/19 02:24 05/26/19 13:09 Zofran IVP 4 mg Q6H PRN Administration Nausea/Vomiting Pantoprazole Sodium 40 mg 05/24/19 09:00 05/26/19 08:12 Protonix PO 40 mg DAILY ROSSY Administration Polyethylene Glycol 17 gm 05/24/19 09:00 05/26/19 10:38 Miralax PO Not Given DAILY ROSSY - Exam General Appearance: awake alert Eye: PERRL, anicteric sclera ENT: no oropharyngeal lesions, moist mucosa Neck: supple, no JVD Heart: RRR, no murmur Respiratory: no wheezes, no rales Gastrointestinal: soft, non-distended, normal bowel sounds, no guarding, no rigidity Extremities: no cyanosis, no edema Skin: normal turgor, no rashes Neurological: cranial nerve grossly intact, no focal deficits Hosp A/P (1) Acute pancreatitis Code(s): K85.90 - ACUTE PANCREATITIS WITHOUT NECROSIS OR INFECTION, UNSP Status: Acute Qualifiers: Pancreatitis type: idiopathic (2) Chronic back pain Code(s): M54.9 - DORSALGIA, UNSPECIFIED; G89.29 - OTHER CHRONIC PAIN Status: Chronic Qualifiers: Back pain location: low back pain (3) GERD (gastroesophageal reflux disease) Code(s): K21.9 - GASTRO-ESOPHAGEAL REFLUX DISEASE WITHOUT ESOPHAGITIS Status: Chronic Qualifiers: Esophagitis presence: esophagitis presence not specified Qualified Code(s) : K21.9 - Gastro-esophageal reflux disease without esophagitis - Plan on iv hydration, morphine and narco prn, bentyl tid. CT abd shows findings of simple pancreatitis, no necrosis or phlegmon lipid profile is normal h/o pancreatitis 2x/yr starting from 2009, no alc usage hemostable full liquid fat free diet
[2019-05-26] MEDS: Bisacodyl 10 MG SUPP PR SCH ×2 (14:29→16:23)
--- NOTE | 2019-05-26 14:58 | PRG ---
DATE OF SERVICE: 05/26/2019 SUBJECTIVE: This is a 58-year-old female with recurrent pancreatitis over the last several years. Hospitalized for abdominal pain, nausea, and vomiting evidence of pancreatitis. She was n.p.o. for nearly 48 hours and subsequently soft diet. She was not able to tolerate diet very well. Still having abdominal pain and nausea. She is not passing any flatus. Although she was given some Dulcolax suppositories and Colace and MiraLAX, she has had no stool, not passing any flatus. Abdominal pain predominantly was in the epigastric area. She also has some cramping pain off and on. PHYSICAL EXAMINATION: VITAL SIGNS: Afebrile, pulse is 60, blood pressure 147/80. HEENT: Conjunctivae are clear. CARDIOVASCULAR SYSTEM: First and second heart sounds heard. LUNGS: Clear to auscultation. ABDOMEN: Soft. No organomegaly. Abdomen is nondistended. Abdomen is tender over the epigastric area. There is no rebound or guarding. She has normal bowel sounds. CLINICAL IMPRESSION: 1. Acute pancreatitis. 2. Ileus. 3. Previous cholecystectomy. RECOMMENDATIONS: 1. Stay on clear liquid diet. 2. Dulcolax suppositories twice a day. 3. May add Reglan . Job ID: [id number]
[2019-05-27] MEDS: Bisacodyl 10 MG SUPP PR SCH ×4 (00:14→23:54)
[2019-05-27] MEDS: Morphine 2 MG/ML SYRINGE SLOW IVP PRN ×5 (00:20→20:18)
[2019-05-27] MEDS: Ondansetron PF 4 MG/2 ML Vial IVP PRN ×3 (06:24→20:28)
[2019-05-27] MEDS: Potassium Chloride 20 MEQ in Lactated Ringer's 1,000 ML IV SCH (07:50)
[2019-05-27] MEDS: Docusate 100 MG CAP PO SCH ×2 (07:52→20:18)
[2019-05-27] MEDS: Dicyclomine 20 MG TAB PO SCH ×3 (07:52→20:18)
[2019-05-27] MEDS: Enoxaparin Sodium 40 MG/0.4 ML SYRINGE SC SCH (07:52)
[2019-05-27] MEDS: Polyethylene Glycol 3350 17 GM Packet PO SCH (07:53)
--- NOTE | 2019-05-27 08:46 | PRG ---
DATE OF SERVICE: 05/25/2019 HISTORY: This is a very pleasant 58-year-old female with previous cholecystectomy more than 30 years ago. The patient also has recurrent pancreatitis. She had abdominal CAT scan, which revealed no pathology. Her common bile duct . She was started full liquid diet, but she has worsening abdominal pain, and she is back to clear liquid diet. She is also on pain medicine [id number]. She is not passing any flatus until this morning. She passed a small amount of flatus. She had no stool. No nausea, no vomiting. The abdominal pain is slightly better than when she came in. PHYSICAL EXAMINATION: GENERAL: Appears comfortable, in no distress. VITAL SIGNS: Afebrile, pulse is 72, and blood pressure is 156/78. HEENT: Conjunctivae are clear. NECK: Supple. CARDIOVASCULAR: Normal. LUNGS: Clear to auscultation. ABDOMEN: Soft and nondistended. Abdomen is friction paint machine tender over the epigastric area. There is no rebound or guarding. LABORATORY DATA: WBC 9400, hemoglobin 12, hematocrit 32.1, platelet count 178,000, polymorphs 70, and lymphocytes 21. Serum chemistry shows normal liver function test. Bilirubin is 0.3, AST 18, ALT 26, alkaline phosphatase 91. Glucose 109. Lytes are normal. CLINICAL IMPRESSION: Recurrent pancreatitis, unknown etiology. The patient is making slow but steady progress. She is still having abdominal pain. RECOMMENDATION: We will limit her oral intake to clear liquid diet and advance diet slowly once the abdominal pain subsides. We would not hurry up to advance diet to regular diet until abdominal pain actually resolves. I did talk to Ms. Joyce and explained to her that she needs to go slow on her diet and stay on Jello, broth, and some juice for the next 24 hours. Once she gets better she can slowly advance diet. Job ID: [id number]
[2019-05-27 10:55] LABS: #Basophils 0.1 thou/uL (0.0-0.2); #Eosinphils 0.5 thou/uL (0.0-0.7); #Lymphocytes 1.9 thou/uL (1.20-3.40); #Monocytes 0.6 thou/uL (0.11-0.59); #Neutrophils 4.1 thou/uL (1.40-6.50); %Eosinophils 7.1 % (0.0-10.0); %Lymphocytes 26.5 % (21.0-51.0); %Monocytes 8.4 % (0.0-10.0); %Neutrophils 56.9 % (42.0-75.0); Hemoglobin 13.5 g/dL (12.0-16.0); Mean Corpuscular HGB CONC 33.6 g/dL (32.0-36.0); Mean Corpuscular Hemoglobin 29.9 pg (27.0-31.0); Mean Corpuscular Volume 89.1 fL (78.0-98.0); Mean Platelet Volume 8.2 fL (7.4-10.4); Platelet Count 251 thou/uL (130-400); RBC Distribution Width 11.6 % (11.5-14.5); Red Blood Cell (RBC) Count 4.52 mill/uL (4.20-5.40); White Blood Cell (WBC) Count 7.2 thou/uL (4.8-10.8)
[2019-05-27 11:13] LABS: ALT (SGPT) 20 U/L (8-55); AST (SGOT) 14 U/L (5-34); Albumin 3.6 g/dL (3.5-5.0); Alkaline Phosphatase 97 U/L (40-110); Anion Gap 13 mmol/L (10-20); BUN (Urea Nitrogen) 6 mg/dL (9.8-20.1); Bilirubin, Total 0.4 mg/dL (0.2-1.2); Calc. Creatinine Clearance 80 mL/min (70-130); Calcium 9.4 mg/dL (7.8-10.44); Carbon Dioxide 22 mmol/L (22-29); Chloride 105 mmol/L (98-107); Estimated GFR-MDRD 84; Glucose 99 mg/dL (70-105); Protein, Total 6.6 g/dL (6.0-8.3); Sodium 136 mmol/L (136-145)
[2019-05-27 12:21] LABS: Amphetamine Not Detected (NotDetected); Barbiturates Screen Not Detected (NotDetected); Benzodiazepine Screen Not Detected (NotDetected); Cocaine Metabolite Screen Not Detected (NotDetected); Medtox Control Line Valid? VALID (VALID); Medtox Reader # READER 1; Methadone Not Detected (NotDetected); Methamphetamine Not Detected (NotDetected); Opiate Screen Detected (NotDetected); Oxycodone Screen Not Detected (NotDetected); Phencyclidine (PCP) Not Detected (NotDetected); THC/Cannabinoid Screen Not Detected (NotDetected); Tricyclic Screen Not Detected (NotDetected)
--- NOTE | 2019-05-27 13:07 | PDOC.HOSPP ---
- Subjective Encounter Date: 05/27/19 Encounter Time: 11:00 Subjective: c/o constipation mild nausea abd pain is better - Objective Vital Signs & Weight: Vital Signs (12 hours) Temp Pulse Resp BP Pulse Ox 05/27/19 07:41 98.1 F 62 16 156/88 H 98 05/27/19 04:39 66 18 155/91 H Weight Weight 132 lb I&O: 05/26/19 05/27/19 05/28/19 05:59 06:59 06:59 Intake Total Balance Result Diagrams: 05/27/19 10:40 05/27/19 10:40 Hospitalist ROS - Medication Medications: Active Medications Generic Name Dose Route Start Last Admin Trade Name Freq PRN Reason Stop Dose Admin Hydrocodone Bitart/Acetaminophen 1 tab 05/23/19 21:14 05/26/19 08:13 [place] 5/325 PO 1 tab Q4H PRN Administration Moderate Pain (4-6) Bisacodyl 10 mg 05/26/19 23:59 05/27/19 07:52 Dulcolax LA 10 mg 0800,1600,2359 ROSSY Administration Dicyclomine HCl 20 mg 05/25/19 21:00 05/27/19 07:52 Bentyl PO 20 mg TID ROSSY Administration Docusate Sodium 100 mg 05/23/19 21:00 05/27/19 07:52 Colace PO Not Given BID ROSSY Enoxaparin Sodium 40 mg 05/23/19 09:00 05/27/19 07:52 Lovenox SC 40 mg 0900 ROSSY Administration Potassium Chloride 20 meq/ 1,010 mls @ 100 mls/hr 05/23/19 03:00 05/27/19 07: 50 Lactated Ringer's IV 1,010 mls .Q10H6M ROSSY Administration Morphine Sulfate 2 mg 05/23/19 02:53 05/27/19 10:28 Morphine SLOW IVP 2 mg Q4H PRN Administration Severe Pain (7-10) Ondansetron HCl 4 mg 05/23/19 02:24 05/27/19 06:24 Zofran IVP 4 mg Q6H PRN Administration Nausea/Vomiting Pantoprazole Sodium 40 mg 05/24/19 09:00 05/27/19 07:52 Protonix PO 40 mg DAILY ROSSY Administration Polyethylene Glycol 17 gm 05/24/19 09:00 05/27/19 07:53 Miralax PO Not Given DAILY ROSSY Sodium Chloride 10 ml 05/26/19 21:00 05/27/19 07:53 Flush - Normal Saline IVF Not Given Q12HR ROSSY - Exam General Appearance: awake alert Eye: PERRL, anicteric sclera ENT: no oropharyngeal lesions, moist mucosa Neck: supple, no JVD Heart: RRR, no murmur Respiratory: no wheezes, no rales Gastrointestinal: soft, non-distended, normal bowel sounds, no guarding, no rigidity Extremities: no cyanosis, no edema Neurological: cranial nerve grossly intact, no focal deficits Psychiatric: normal affect, A&O x 3 Hosp A/P (1) Acute pancreatitis Code(s): K85.90 - ACUTE PANCREATITIS WITHOUT NECROSIS OR INFECTION, UNSP Status: Acute Qualifiers: Pancreatitis type: idiopathic (2) Chronic back pain Code(s): M54.9 - DORSALGIA, UNSPECIFIED; G89.29 - OTHER CHRONIC PAIN Status: Chronic Qualifiers: Back pain location: low back pain (3) GERD (gastroesophageal reflux disease) Code(s): K21.9 - GASTRO-ESOPHAGEAL REFLUX DISEASE WITHOUT ESOPHAGITIS Status: Chronic Qualifiers: Esophagitis presence: esophagitis presence not specified Qualified Code(s) : K21.9 - Gastro-esophageal reflux disease without esophagitis - Plan on iv hydration, morphine and narco prn, bentyl tid. CT abd shows findings of simple pancreatitis, no necrosis or phlegmon lipid profile is normal h/o pancreatitis 2x/yr starting from 2009, no alc usage hemostable fat free diet, may dc if tolerating it.
[2019-05-27] MEDS: Fleet Enema 133 ML BOT PR SCH ×2 (13:11→15:25)
[2019-05-27] MEDS ORDERED: GoLYTELY 4,000 ml Bottle PO SCH ×2 (13:15→13:30)
--- NOTE | 2019-05-27 16:43 | PRG ---
DATE OF SERVICE: 05/27/2019 SUBJECTIVE: This is a 58-year-old female, hospitalized for acute pancreatitis. She is making slow, but steady progress. Abdominal pain is getting better. No nausea or vomiting. However, she passing gas. She was given some Dulcolax suppositories around the clock yesterday, but no result. She is also taking MiraLAX and Colace, but nothing seems to help her. She feels bloated . OBJECTIVE: GENERAL: Appears comfortable, in no acute distress. VITAL SIGNS: Afebrile, pulse is 62, blood pressure 156/88. CARDIOVASCULAR SYSTEM: First and second heart sounds heard. LUNGS: Clear to auscultation. ABDOMEN: Soft and nondistended. Abdomen is tender over the epigastric area. Her bowel sounds are very hypoactive. LABORATORY DATA: From today, she had a normal CBC. Chemistry panel, normal lytes and normal liver function tests. CLINICAL IMPRESSION: 1. Acute pancreatitis, resolving. 2. Ileus. I did talk to Ms. Joyce, and she really wants to drink the GoLYTELY prep. I ordered a GoLYTELY prep and hopefully this will resolve her constipation and abdominal bloating. If she does well, advance the diet and hopefully she can probably go home tomorrow. Job ID: [id number]
[2019-05-28] MEDS: Potassium Chloride 20 MEQ in Lactated Ringer's 1,000 ML IV SCH ×2 (03:56→14:28)
[2019-05-28] MEDS: Morphine 2 MG/ML SYRINGE SLOW IVP PRN ×4 (03:57→20:50)
[2019-05-28] MEDS: Ondansetron PF 4 MG/2 ML Vial IVP PRN (03:57)
[2019-05-28 06:14] LABS: ALT (SGPT) 14 U/L (8-55); AST (SGOT) 13 U/L (5-34); Albumin 3.2 g/dL (3.5-5.0); Alkaline Phosphatase 83 U/L (40-110); Anion Gap 10 mmol/L (10-20); BUN (Urea Nitrogen) 6 mg/dL (9.8-20.1); Bilirubin, Total 0.4 mg/dL (0.2-1.2); Calc. Creatinine Clearance 82 mL/min (70-130); Carbon Dioxide 24 mmol/L (22-29); Chloride 107 mmol/L (98-107); Estimated GFR-MDRD 87; Globulin 2.5 g/dL (2.4-3.5); Glucose 104 mg/dL (70-105); Potassium 3.8 mmol/L (3.5-5.1); Protein, Total 5.7 g/dL (6.0-8.3); Sodium 137 mmol/L (136-145)
[2019-05-28] MEDS: Polyethylene Glycol 3350 17 GM Packet PO SCH (08:11)
[2019-05-28] MEDS: Docusate 100 MG CAP PO SCH ×2 (08:11→20:48)
[2019-05-28] MEDS: Bisacodyl 10 MG SUPP PR SCH ×2 (08:11→15:16)
[2019-05-28] MEDS: Dicyclomine 20 MG TAB PO SCH ×3 (08:18→20:49)
[2019-05-28] MEDS: Enoxaparin Sodium 40 MG/0.4 ML SYRINGE SC SCH (08:18)
[2019-05-28] MEDS: Metoclopramide HCl 10 MG/2 ML VIAL IVP SCH ×2 (14:28→21:01)
--- NOTE | 2019-05-28 20:59 | PDOC.HOSPP ---
- Subjective Encounter Date: 05/28/19 Subjective: The patient was not able to tolerate GoLYTELY prep yesterday. Remains constipated. Complains of intermittent nausea. Unable to tolerate her diet. - Objective Vital Signs & Weight: Vital Signs (12 hours) Temp Pulse Resp BP Pulse Ox 05/28/19 19:10 98.3 F 88 18 168/99 H 97 Weight Weight 132 lb I&O: 05/27/19 05/28/19 05/29/19 06:59 06:59 06:59 Intake Total 1680 Balance 1680 Result Diagrams: 05/27/19 10:40 05/28/19 05:19 Hospitalist ROS - Medication Medications: Active Medications Generic Name Dose Route Start Last Admin Trade Name Freq PRN Reason Stop Dose Admin Hydrocodone Bitart/Acetaminophen 1 tab 05/23/19 21:14 05/26/19 08:13 [place] 5/325 PO 1 tab Q4H PRN Administration Moderate Pain (4-6) Bisacodyl 10 mg 05/26/19 23:59 05/28/19 15:16 Dulcolax DE Not Given 0800,1600,2359 ROSSY Dicyclomine HCl 20 mg 05/25/19 21:00 05/28/19 14:30 Bentyl PO 20 mg TID ROSSY Administration Docusate Sodium 100 mg 05/23/19 21:00 05/28/19 08:11 Colace PO Not Given BID ROSSY Enoxaparin Sodium 40 mg 05/23/19 09:00 05/28/19 08:18 Lovenox SC 40 mg 0900 ROSSY Administration Potassium Chloride 20 meq/ 1,010 mls @ 100 mls/hr 05/23/19 03:00 05/28/19 14: 28 Lactated Ringer's IV 1,010 mls .Q10H6M ROSSY Administration Lactulose 30 gm 05/28/19 17:00 05/28/19 17:17 Lactulose PO 30 gm QID ROSSY Administration Metoclopramide HCl 10 mg 05/28/19 14:00 05/28/19 14:28 Reglan IVP 10 mg Q8HR ROSSY Administration Morphine Sulfate 2 mg 05/23/19 02:53 05/28/19 14:29 Morphine SLOW IVP 2 mg Q4H PRN Administration Severe Pain (7-10) Pantoprazole Sodium 40 mg 05/24/19 09:00 05/28/19 08:18 Protonix PO 40 mg DAILY ROSSY Administration Polyethylene Glycol 17 gm 05/24/19 09:00 05/28/19 08:11 Miralax PO Not Given DAILY ROSSY Sodium Chloride 10 ml 05/26/19 21:00 05/28/19 08:11 Flush - Normal Saline IVF Not Given Q12HR ROSSY - Exam General Appearance: NAD ENT: normocephalic atraumatic, no oropharyngeal lesions Neck: supple, no JVD Heart: RRR, no murmur, no gallops, no rubs, normal peripheral pulses Respiratory: CTAB, no wheezes, normal chest expansion Gastrointestinal: soft, non-tender, non-distended, normal bowel sounds Hosp A/P (1) Acute pancreatitis Code(s): K85.90 - ACUTE PANCREATITIS WITHOUT NECROSIS OR INFECTION, UNSP Status: Acute Qualifiers: Pancreatitis type: idiopathic (2) Ileus Code(s): K56.7 - ILEUS, UNSPECIFIED Status: Acute - Plan Patient was recurrent acute pancreatitis. Her episode has largely resolved. The only remaining issue is and significant constipation that the patient report is long standing issue for her. She was diagnosed with irritable bowel syndrome with constipation variant in the past. Regular and GoLYTELY were ordered. We will monitor the patient's response.
[2019-05-29] MEDS: Potassium Chloride 20 MEQ in Lactated Ringer's 1,000 ML IV SCH ×2 (01:39→09:42)
[2019-05-29] MEDS: Bisacodyl 10 MG SUPP PR SCH ×3 (01:40→10:27)
[2019-05-29] MEDS: Morphine 2 MG/ML SYRINGE SLOW IVP PRN ×3 (03:26→14:23)
[2019-05-29] MEDS: Metoclopramide HCl 10 MG/2 ML VIAL IVP SCH ×2 (06:05→14:23)
[2019-05-29] MEDS: Docusate 100 MG CAP PO SCH (07:17)
[2019-05-29] MEDS: Polyethylene Glycol 3350 17 GM Packet PO SCH (07:18)
[2019-05-29 07:37] VITALS: BP 155/84; TEMP 97.8
[2019-05-29] MEDS: Dicyclomine 20 MG TAB PO SCH ×2 (08:51→14:24)
[2019-05-29] MEDS: Enoxaparin Sodium 40 MG/0.4 ML SYRINGE SC SCH (08:51)
--- NOTE | 2019-05-29 11:34 | PRG ---
DATE OF SERVICE: 05/28/2019 SUBJECTIVE: This is a 58-year-old , hospitalized with abdominal pain, nausea, vomiting, and evidence of pancreatitis. She has made remarkable improvement. However, the problem seems to be abdominal cramping, constipation. She feels very bloated and she fears that she has a blockage. She was tried on her Dulcolax suppositories and also she was given some enemas . She also takes MiraLAX and Colace . She was tried on GoLYTELY yesterday and the GoLYTELY and after she drank 1 L, she started throwing up. She last night. She has passed some flatus last time, but no stool. She complains of feeling bloated and had some cramping off and on. She tells me she has had taken Linzess for IBS with constipation in the past. . OBJECTIVE: GENERAL: Appears comfortable. VITAL SIGNS: Afebrile, pulse rate 65, blood pressure 152/84. CARDIOVASCULAR SYSTEM: Normal heart sounds. LUNGS: Clear to auscultation. ABDOMEN: Soft. Abdomen is nondistended. Abdomen is minimally tender over the epigastric area. No rebound or guarding. CLINICAL IMPRESSION: 1. Acute pancreatitis, resolving. 2. IBS with constipation. Start the patient on Linzess 145 mcg once a day. We will repeat serum amylase and lipase tomorrow. If comes back normal, consider discharge home tomorrow. Job ID: [id number]
--- NOTE | 2019-05-30 13:47 | DIS ---
DATE OF ADMISSION: 05/22/2019 DATE OF DISCHARGE: 05/29/2019 HISTORY OF PRESENT ILLNESS AND HOSPITAL COURSE: The patient is a 58-year-old female with past medical history of peptic ulcer disease and recurrent pancreatitis, who presented to the hospital with complaint of sudden onset of severe abdominal pain radiating to her back associated with nausea. CT scan of the abdomen and pelvis was obtained showing an uncomplicated acute pancreatitis. The patient was admitted to the hospital and started on conservative management with pain control and aggressive IV hydration and bowel rest initially. Those measures led to control her pain. Subsequently, diet was advanced slowly and was tolerating. The patient has significant constipation likely due to ileus. This was managed conservatively in the beginning and subsequently with p.o. lactulose, which led to resolution of her condition. DISCHARGE DIAGNOSES: 1. Recurrent acute pancreatitis. 2. Ileus. DISCHARGE MEDICATIONS: 1. Lactulose 10 mg p.o. twice daily as needed for constipation. 2. Pantoprazole 40 mg orally daily. 3. MiraLAX 17 g p.o. daily as needed for constipation. 4. Klonopin 0.5 mg p.o. at bedtime. DISCHARGE INSTRUCTIONS: The patient was instructed to follow up with her PCP in 1 week and to increase intake of fibers. Job ID: [id number] [facility]
== END 2019-05-29 17:51 | disposition home or self-care (01) | DRG 439 ==
LOC: ERS 20:32 → ERHOLD 23:01 → T4-B 05-23 06:14
PROVIDERS: ADMIT Internal Medicine Sleep Medicine; ATTEND Internal Medicine
DX: K85.90 Acute pancreatitis without necrosis or infection, unspecified (principal); K56.7 Ileus, unspecified; K86.1 Other chronic pancreatitis; M54.5 Low back pain; K21.9 Gastro-esophageal reflux disease without esophagitis; K58.1 Irritable bowel syndrome with constipation; Z87.11 Personal history of peptic ulcer disease; Z90.49 Acquired absence of other specified parts of digestive tract; Z88.8 Allergy status to other drugs, medicaments and biological substances; Z91.041 Radiographic dye allergy status; Z90.710 Acquired absence of both cervix and uterus
CPT/HCPCS: 36415; 74178; 80053; 80061; 80306; 81003; 81015; 82150; 82787; 83690; 85025; 96361; 96374; 96375; J1650; J1885; J2270; J2405; J2765; J3480; J7120; J7512; Q0163; Q9967

== ENCOUNTER 2019-08-29 13:54 | Emergency (ER) | payer SELFPAY ==
[2019-08-29 15:25] LABS: #Basophils 0.1 thou/uL (0.0-0.2); #Eosinphils 0.4 thou/uL (0.0-0.7); #Lymphocytes 2.5 thou/uL (1.20-3.40); #Monocytes 0.6 thou/uL (0.11-0.59); #Neutrophils 2.6 thou/uL (1.40-6.50); %Basophils 1.1 % (0.0-1.0); %Eosinophils 6.5 % (0.0-10.0); %Lymphocytes 40.8 % (21.0-51.0); %Monocytes 9.2 % (0.0-10.0); %Neutrophils 42.4 % (42.0-75.0); Hemoglobin 14.9 g/dL (12.0-16.0); Mean Corpuscular HGB CONC 34.7 g/dL (32.0-36.0); Mean Corpuscular Hemoglobin 30.8 pg (27.0-31.0); Mean Corpuscular Volume 88.7 fL (78.0-98.0); Mean Platelet Volume 8.8 fL (7.4-10.4); Platelet Count 200 thou/uL (130-400); RBC Distribution Width 12.2 % (11.5-14.5); Red Blood Cell (RBC) Count 4.85 mill/uL (4.20-5.40); White Blood Cell (WBC) Count 6.1 thou/uL (4.8-10.8)
[2019-08-29 15:51] LABS: ALT (SGPT) 9 U/L (8-55); AST (SGOT) 18 U/L (5-34); Albumin 4.3 g/dL (3.4-4.8); Alkaline Phosphatase 83 U/L (40-110); Anion Gap 14 mmol/L (10-20); BUN (Urea Nitrogen) 10 mg/dL (9.8-20.1); Bilirubin, Total 0.4 mg/dL (0.2-1.2); CK (CPK) 42 U/L (29-168); Calc. Creatinine Clearance 0 mL/min (70-130); Carbon Dioxide 19 mmol/L (23-31); Chloride 112 mmol/L (98-107); Estimated GFR-MDRD 79; Globulin 2.3 g/dL (2.4-3.5); Glucose 97 mg/dL (80-115); Lipase 8 U/L (8-78); Potassium 3.6 mmol/L (3.5-5.1); Protein, Total 6.6 g/dL (6.0-8.3); Sodium 141 mmol/L (136-145)
[2019-08-29] MEDS ORDERED: Morphine 4 MG/ML VIAL ONE (16:13)
[2019-08-29] MEDS ORDERED: Ondansetron ODT 4 MG TAB ONE (16:18)
== END 2019-08-29 17:21 | disposition home or self-care (01) ==
LOC: ERS 13:54
DX: K86.1 Other chronic pancreatitis (principal); M54.6 Pain in thoracic spine; F41.9 Anxiety disorder, unspecified; F32.9 Major depressive disorder, single episode, unspecified; Z79.899 Other long term (current) drug therapy
CPT/HCPCS: 80053; 82550; 83690; 84484; 85025; 93005; 96372; J2270; Q0162

== ENCOUNTER 2019-11-19 17:26 | Observation (INO) | payer OTHER ==
[~2019-11-19 17:26] MED LIST: Iopamidol-370 76% 500 ML 1 ML ONE
[2019-11-19 18:13] LABS: Hemoglobin 14.2 g/dL (12.0-16.0); Mean Corpuscular HGB CONC 33.9 g/dL (32.0-36.0); Mean Corpuscular Hemoglobin 29.8 pg (27.0-31.0); RBC Distribution Width 12.1 % (11.5-14.5); Red Blood Cell (RBC) Count 4.77 mill/uL (4.20-5.40); White Blood Cell (WBC) Count 6.1 thou/uL (4.8-10.8)
[2019-11-19 18:33] LABS: ALT (SGPT) 17 U/L (8-55); AST (SGOT) 29 U/L (5-34); Albumin 4.3 g/dL (3.4-4.8); Alkaline Phosphatase 97 U/L (40-110); Anion Gap 16 mmol/L (10-20); BUN (Urea Nitrogen) 14 mg/dL (9.8-20.1); Bilirubin, Total 0.4 mg/dL (0.2-1.2); Calc. Creatinine Clearance 0 mL/min (70-130); Calcium 10.2 mg/dL (7.8-10.44); Carbon Dioxide 20 mmol/L (23-31); Chloride 106 mmol/L (98-107); Estimated GFR-MDRD 67; Globulin 3.3 g/dL (2.4-3.5); Glucose 113 mg/dL (80-115); Lipase 12 U/L (8-78); Potassium 4.1 mmol/L (3.5-5.1); Protein, Total 7.6 g/dL (6.0-8.3); Sodium 138 mmol/L (136-145)
[2019-11-19 18:46] LABS: Eosinophils 4 % (0-10); Lymphocytes 37 % (21-51); MDiff Complete? YES; Mean Platelet Volume 10.1 fL (7.4-10.4); Monocytes 5 % (0-10); Neutrophil 49 % (42-75); Platelet Clumps SLIGHT; Platelet Morphology Comment PLT clumps seen-ADEQ; Polychromasia SLIGHT = 2-3 cells (100X) (0-2/hpf); Reactive Lymphocytes 5 % (0-10)
[2019-11-19] MEDS ORDERED: Morphine 4 MG/ML VIAL ONE ×2 (19:15→22:00)
[2019-11-19] MEDS ORDERED: diphenhydrAMINE 50 MG/ML VIAL ONE (19:16)
[2019-11-19] MEDS ORDERED: Famotidine/PF 20 mg/2ml Vial ONE (19:16)
[2019-11-19] MEDS ORDERED: Ondansetron PF 4 MG/2 ML Vial ONE ×2 (19:16→22:11)
[2019-11-19] MEDS ORDERED: methylPREDNISolone Sod Succ/PF 125 MG/2 ML VIAL ONE (19:16)
--- NOTE | 2019-11-19 20:12 | CT ---
EXAM: CT ABDOMEN AND PELVIS HISTORY: Epigastric pain COMPARISON: 05/24/2019 Procedure: Multiple contiguous axial images were obtained and a CT of the abdomen and pelvis with IV contrast. C oronal reformats were performed. FINDINGS: Lower Chest: within normal limits. Vessels: Normal caliber aorta. Heart: Normal heart size Abdomen: Portal vein:Patent Gallbladder: Surgically absent Liver: Appropriate enhancement of the liver. No enhancing solid masses. Pancreas: Mild atrophy. Spleen: within normal limits. Adrenals: within normal limits. Kidneys: Symmetric enhancement. No obstructive uropathy. Peritoneum: No ascites or free air, no fluid collection. Bowel: Limited evaluation due to the lack of oral contrast administration. No evidence of bowel obstr uction. Ileocecal junction is unremarkable. Prior report states that the patient has had an appendectomy. Scattered fecal material in a nondistended, nondilated colon. Mesentery and Retroperitoneum: No enlarged mesenteric or retroperitoneal lymph nodes. Abdominal Wall: within normal limits. Pelvis: Reproductive Organs: Uterus is surgically absent Pelvis: No mass, lymphadenopathy, free air or free fluid. Bladder: within normal limits. Bones: No lytic or blastic lesions in the osseous structures. Fusion of the lumbosacral junction is n oted. IMPRESSION: No evidence of acute intraabdominal\pelvic abnormality.
[2019-11-19] MEDS ORDERED: Mag-Al 1200 mg/1200 mg/30 ML UDCUP ONE (20:29)
[2019-11-19] MEDS ORDERED: Lidocaine Viscous Sol 2% 15 ml UD Cup ONE (20:29)
[2019-11-19 21:09] LABS: CKMB 0.9 ng/mL (0-6.6)
--- NOTE | 2019-11-19 21:35 | RAD ---
Exam: Chest one view HISTORY:Chest pain Comparison: 03/17/2019 FINDINGS: Cardiac silhouette:Normal cardiac silhouette. Recorder is noted. Aorta: Unremarkable Pulmonary vessels: Normal Costophrenic angles: Clear LUNGS: No masses or consolidation. Pneumothorax: None Osseous abnormalities: None IMPRESSION: No acute cardiopulmonary process.
[2019-11-19] MEDS ORDERED: Aspirin Chewable 81 MG TAB ONE (22:01)
[2019-11-19 22:28] LABS: Troponin I Less than 0.010 ng/mL (< 0.028)
[2019-11-19] MEDS ORDERED: Acetaminophen 325 MG TAB PO PRN (23:13)
[2019-11-19] MEDS ORDERED: Ondansetron PF 4 MG/2 ML Vial IVP PRN (23:13)
[2019-11-19] MEDS ORDERED: Ondansetron ODT 4 MG TAB PO PRN (23:13)
--- NOTE | 2019-11-19 23:13 | PDOC.FPRHP ---
- History of Present Illness Chief Complaint: HTN History of Present Illness: Patient is a 59 year old female with a history of HTN, PUD, chronic pancreatitis and chronic pain s/p back surgery who presents to the ED with complains of elevated BP ranging 140s-160s at home for the past few weeks. The patient reports a drop in BP averaging 20 points when standing. She was seen by a new peer specialist in [place] this past week who began a new medication, name unknown. The patient denies headache, vision changes, and chest pain. She reports loss of taste, loss of smell, dizziness, nausea, and SOB when walking for the past 3 weeks. + COVID exposure at work 1 month ago, tested negative 4 days ago. The patient notes intermittent subjective fever for the past 1 week. She complains of left upper and epigastric abdominal pain radiating to the back for the past few days. She describes the pain as similar to her history of chronic pancreatitis. No change in BMs, melena, hematochezia and hematemesis. The patient says shes has been unable to work for the past 3 weeks due to her symptoms. She reports feelings of depression related to her and 2 son's deaths. ED Course: In the ED, patient was afebrile. BP initially 190/110, downtrending to 140s/ 70s. ASA, morphine 4mg x 2, pepcid IV, solu-medrol, benadryl, and zofran administered. Received 1L NS. Patient given GI cocktail but reported she vomited it in the bathroom, unobserved. - Allergies/Adverse Reactions Allergies Allergy/AdvReac Type Severity Reaction Status Date / Time codeine Allergy Verified 11/19/19 23:30 Iodinated Contrast Media Allergy Verified 05/23/19 04:02 - Home Medications Medication Instructions Recorded Confirmed Type clonazePAM [Klonopin] 0.5 mg PO BID PRN 05/24/19 11/19/19 History Pantoprazole [Protonix] 40 mg PO DAILY #30 tab 05/29/19 11/19/19 Rx Zolpidem Tartrate [Ambien] 10 mg PO HS 11/19/19 11/19/19 History tiZANidine HCl [Tizanidine HCl] 4 mg PO BID PRN 11/19/19 11/19/19 History - History PMHx: HTN, PUD, chronic pancreatitis, chronic pain s/p back surgery PSHx: 2 cardiac caths without stents in [id number], back surgery, bilateral knee surgery FHx: Mother - DM, CVA. Father - CAD. No history of sudden or MIs. Social: and 2 sons are . Patient notes history of elevated BP after son was murdered in 2014. Denies tobacco use. Reports marijuana use once recently when she became overwhelmed. Denies alcohol use. - Review of Systems General: reports: fever/chills, fatigue. denies: weight/appetite/sleep changes Eyes: denies: eye pain, vision changes ENT: denies: nasal congestion, rhinorrhea Respiratory: reports: shortness of breath, exercise intolerance. denies: cough , congestion Cardiovascular: denies: chest pain, palpitation, edema Gastrointestinal: reports: nausea, abdominal pain. denies: vomiting, diarrhea, constipation, GI bleeding Genitourinary: denies: dysuria, polyuria Skin: denies: rashes, jaundice Musculoskeletal: reports: pain. denies: tenderness Neurological: denies: numbness, syncope, seizure, weakness Psychological: reports: anxiety, depression - Vital signs BP: [172/89] HR: [65] RR: [15] Tmax: [98.3] Pox: [98]% on [RA] Wt: [57kg] - Physical Exam Constitutional: NAD, awake, alert and oriented HEENT: normocephalic and atraumatic Neck: supple, trachea midline Chest: no-tender to palpation, no lesions Heart: RRR, normal S1/S2, no murmurs/rubs/gallops Lungs: CTAB, no respiratory distress Abdomen: soft, bowel sounds present, no masses/distention -Abdomen: Mild tenderness LUQ Musculoskeletal: normal structure, ROM grossly normal Neurological: no focal deficit, CN II-XII intact Skin: no rash/lesions, no jaundice Heme/Lymphatic: no unusual bruising or bleeding -Psychiatric: Became tearful when discussing son's and when asked about depression FMR H&P: Results - Labs Result Diagrams: 11/19/19 18:00 11/19/19 18:00 Lab results: WBC 6.1 thou/uL (4.8-10.8) 11/19/19 18:00 Hgb 14.2 g/dL (12.0-16.0) 11/19/19 18:00 Hct 42.0 % (36.0-47.0) 11/19/19 18:00 MCV 88.0 fL (78.0-98.0) 11/19/19 18:00 Plt Count TNP 11/19/19 18:00 Sodium 138 mmol/L (136-145) 11/19/19 18:00 Potassium 4.1 mmol/L (3.5-5.1) 11/19/19 18:00 Chloride 106 mmol/L (98-107) 11/19/19 18:00 Carbon Dioxide 20 mmol/L (23-31) L 11/19/19 18:00 BUN 14 mg/dL (9.8-20.1) 11/19/19 18:00 Creatinine 0.86 mg/dL (0.6-1.1) 11/19/19 18:00 Glucose 113 mg/dL (80-115) 11/19/19 18:00 Lactic Acid 1.4 mmol/L (0.5-2.2) 11/19/19 18:00 Calcium 10.2 mg/dL (7.8-10.44) 11/19/19 18:00 Total Bilirubin 0.4 mg/dL (0.2-1.2) 11/19/19 18:00 AST 29 U/L (5-34) 11/19/19 18:00 ALT 17 U/L (8-55) 11/19/19 18:00 Alkaline Phosphatase 97 U/L (40-110) 11/19/19 18:00 CK-MB (CK-2) 0.9 ng/mL (0-6.6) 11/19/19 18:00 Serum Total Protein 7.6 g/dL (6.0-8.3) 11/19/19 18:00 Albumin 4.3 g/dL (3.4-4.8) 11/19/19 18:00 Lipase 12 U/L (8-78) 11/19/19 18:00 - EKG Interpretation EKG: NSR. T-wave inversion in V1-4. No ST segment changes. - Radiology Interpretation Chest x-ray Status: report reviewed by me Additional comment: No acute cardiopulmonary process CT scan - abdomen Status: report reviewed by me Additional comment: CT A/P showed no acute process FMR H&P: A/P - Plan 59 yo F with PMH chronic pancreatitis, HTN and PUD presents with multiple complaints and is admitted for HTN urgency and indeterminate troponin. Hypertensive urgency BP initial 190/110. Ranged systolic 170-190s in ED, reportedly ranging 130-160 systolic at home. No evidence of end organ damage. Recently seen by peer specialist in [place] who adjusted medication regimen. Patient takes multiple BP meds but does not know names. Med rec by nursing staff did not include BP medications. -Hydralazine 10mg Q4H PRN overnight -Contact [facility] [place] for med rec per patient Indeterminate troponin Patient complained of epigastric/LUQ pain for several days. Denies chest pain. Cause likely GI related in nature. Trop 0.069. EKG showed NSR with T wave inversions in V1-4, no ST segment changes. Patient reports she was previously referred to a peer specialist for abnormal EKG. EKG from 08/2019 at [facility] showed T wave abnormality, details unknown. Given ASA, morphine 4mg x 2, Zofran and 1L NS in ED. Heart score 3, low risk. Stress test not indicated at this time. -Trend trop -NPO at midnight pending trop trend and possible need for intervention PUD Given Pepcid IV and GI cocktail in ED, however reportedly vomited GI cocktail. Epigastric/LUQ pain appears consistent with hx of PUD disease. Patient reports symptoms worsen with increased stress. -Start home protonix PO for am -Consider EGD outpatient for follow up PCP: [facility] SURGERY MANAGER in [place] Code: FULL DVT PPx: SCDs, Val 0 Attending: Vicente Dispo: admit to telemetry obs, expected LOS < 48hrs FMR H&P: Upper Level - Plan Date/Time: 11/19/19 2313 Elizabeth Soto, have evaluated this patient and agree with findings/plan as outlined by internal security manager resident. Pertinent changes/additions are listed here. 59 yo F with PMH chronic pancreatitis, HTN, PUD, anxiety presents with multiple complaints to ED. It seems that HTN is the main reason she came in. She additionally notes epigastric burning pain. No other changes in stool. Regularly sees cardiology in [place] for BP control. She also reports having teletypesetter monitor in place. Her home medication of clonazepam is prescribed and recently filled by [facility] SURGERY MANAGER in [place]. Patient was hospitalized here 05/2019 for pancreatitis and had moved to the area at that time. Has not established with local PCP. In ED given zofran, 1L, benadryl, solumedrol, pepcid IV, GI cocktail (which she vomited in bathroom, morphine 4mg) VS: BP max in ED was 192/106, currently 172/87, 98.3, 15, 98% on RA, 65 PE: Gen: NAD Heart: RRR, no murmurs Lungs: CTAB, no wheezing. No increased work of breathing Abd: soft, epigastric area TTP, BS+ Ext: no edema Psych: AOx3 Pertinent Labs/Imaging: CT ab/pelvis negative, lipase 12, trop 0.069 59 yo F with PMH chronic pancreatitis, HTN, PUD, anxiety presents with multiple complaints and is admitted for HTN urgency and indeterminate troponin. HTN urgency - BP 170-190s systolic in ED - Hydralazine prn overnight - Will need to clarify med rec in am. Patient says she takes multiple BP medications but does not remember any names, says they are in her car. Nursing staff contacted pharmacy and med rec did not have any BP meds. Patient says she uses [facility] [place] and they will have her information. Indeterminate troponin - Pain is epigastric, in setting of hx PUD - EKG NSR, T wave inversions V1-4, no ST changes. She initially referred to cardiology a while back for abnormal EKG. EKG read from 08/2019 here showed T wave abnormality but unable to pull up image - Heart score 3, low risk - she has had regular visits with cardiology in [place] and with symptoms consistent with dyspepsia, stress test not recommended at this time. Will make NPO at [place] and continue to trend troponin overnight. PUD - Given IV pepcid in ED, continue home protonix - Patient seems to have symptoms refractory to PPI therapy, says they are stress related. In absence of any history of alarm symptoms and if tolerating PO intake well with improvement in pain, could recommend EGD in outpatient setting PCP: PLASTIC SURGERY MANAGER in [place] Attending: Vicente Dispo: admit to telemetry for observation, expected LOS <48hrs. Patient would benefit with establishing with local PCP Addendum - Attending - Attending Attestation Date/Time: 11/19/19 9634 I personally evaluated the patient and discussed the management with Dr. Che I agree with the History, Examination, Assessment and Plan documented above with any addition or exceptions noted below - 59 year old female with a history of HTN, PUD, chronic pancreatitis and chronic pain s/p back surgery who presents to the ED with complains of elevated BP ranging 140s-160s at home for the past few weeks. The patient reports a drop in BP averaging 20 points when standing. She was seen by a new peer specialist in [place] this past week who began a new medication, name unknown. The patient denies headache, vision changes, and chest pain. In ER BP elevated (170-190/100-110s). Also complains of left upper abdominal pain radiating to the back for the past few days. She describes the pain as similar to her history of chronic pancreatitis. No change in BMs, melena, hematochezia and hematemesis. The patient says shes has been unable to work for the past 3 weeks due to her symptoms. She reports feelings of depression related to her and 2 son's deaths. PMH/PSH/Meds/SH reviewed and agree with resident's documentation. Afebrile BP 142/70 P74 Exam repeated by me and agree with resident's findings. Labs: H/H=14.2/42.0, BUN/Cr=14/0.86, trop I=0.069, EKG- NSR, inverted T waves V1-V4. A/P: 1) Hypertensive urgency- now improved; will contact pharmacy in AM for med reconciliation. 2) Abd pain- lipase normal; possible PUD; continue PPI 3) Abnormal EKG- will obtain records from patient's peer specialist. Continue cardiac enzymes.
[2019-11-19] MEDS ORDERED: hydrALAZINE 20 MG/ML VIAL SLOW IVP PRN (23:17)
[2019-11-19 23:28] VITALS: BMI 21.5
[2019-11-20] MEDS ORDERED: tiZANidine HCl 4 MG TAB PO PRN (00:44)
[2019-11-20] MEDS ORDERED: clonazePAM 0.5 MG TAB PO PRN (00:44)
[2019-11-20 01:16] LABS: Troponin I Less than 0.010 ng/mL (< 0.028)
[2019-11-20 04:39] VITALS: TEMP 97.6
[2019-11-20] MEDS ORDERED: traMADol HCl 50 MG TAB PO SCH (05:30)
--- NOTE | 2019-11-20 06:11 | PDOC.FM ---
- Subjective Subjective: Patient is resting in bed, reports she is still having moderate epigastric abdominal pain after getting tramadol. Reports nausea. Denies chest pain, shortness of breath, BM changes. Notes she has had loss of taste and smell with shortness of breath x 3 weeks. - Objective MAR Reviewed: Yes Vital Signs & Weight: Vital Signs (12 hours) Temp Pulse Resp BP BP Pulse Ox 11/20/19 04:10 97.6 F 58 L 16 143/65 H 99 11/20/19 00:25 58 L 157/72 H 11/19/19 23:34 98.1 F 59 L 18 183/83 H 98 11/19/19 23:13 98 11/19/19 22:50 87 163/104 H 98 Weight Weight 56.971 kg I&O: 11/18/19 11/19/19 11/20/19 06:59 06:59 06:59 Intake Total 242 Output Total 300 Balance -58 Result Diagrams: 11/19/19 18:00 11/19/19 18:00 Phys Exam - Physical Examination Constitutional: NAD HEENT: PERRLA, moist MMs Respiratory: no wheezing, clear to auscultation bilateral Cardiovascular: RRR, no significant murmur Gastrointestinal: soft, positive bowel sounds epigastric and LUQ tenderness to palpation, +guarding, -rebound Musculoskeletal: no edema, pulses present Neurological: non-focal, normal sensation, moves all 4 limbs Skin: no rash Dx/Plan (1) Hypertension Code(s): I10 - ESSENTIAL (PRIMARY) HYPERTENSION Status: Acute (2) Epigastric pain Code(s): R10.13 - EPIGASTRIC PAIN Status: Acute - Plan Plan: HTN urgency - BP 170-190s systolic in ED - Hydralazine prn overnight - saw Robotic Machine Operator [place] in [facility] yesterday, who started new bp med, unsure of the name - Will med rec [facility] [place] for patients BP meds Indeterminate troponin Trops .069, <.01, <.01 - Pain is epigastric, in setting of hx PUD - EKG NSR, T wave inversions V1-4, no ST changes. She initially referred to cardiology a while back for abnormal EKG. EKG read from 08/2019 here showed T wave abnormality but unable to pull up image - Heart score 3, low risk - Saw supervisor blast furnace auxiliaries yesterday, has f/u on 12/06/2019, will likely have patient f/ u in office for possible outpatient stress Epigastric Pain, Hx Gastric Ulcers - Gave sucralfate, scheduled, patient has not been taking PPI since may, restarted - Patient seems to have symptoms refractory to PPI therapy, says they are stress related. - PDMP shows multiple physicians prescribing norco, tramadol and clonazepam - Would recommend GI follow up in outpatient. PCP: CRIMPING PRESS OPERATOR in [place] Dispo: admit to telemetry for observation, expected LOS <48hrs. Patient would benefit with establishing with local PCP. Addendum - Attending - Attending Attestation Date/Time: 11/20/19 1120 I personally evaluated the patient and discussed the management with Dr. Sesay. I agree with the History, Examination, Assessment and Plan documented above with any addition or exceptions noted below. Patient here for a variety of complaints. CT abdomen does not reveal any pathology, and her pain is similar to previous complaints that have been attributed to PUD. She is stable for discharge to follow up with her outpatient specialists.
[2019-11-20] MEDS ORDERED: Sucralfate 1 GM/10 ML UDCUP PO SCH ×3 (08:15→15:00)
[2019-11-20 12:13] VITALS: BP 157/76
[2019-11-20] MEDS ORDERED: Amlodipine 5 mg/Benazepril 10 mg CAP PO SCH (12:15)
[2019-11-20 12:31] LABS: SARS-CoV-2 MS2 Positive; SARS-CoV-2 N Gene Negative; SARS-CoV-2 S Gene Negative; SARS-CoV-2 by NAA Not Detected (NotDetected); SARS-CoV-2 orf1ab Negative
[2019-11-20] MEDS ORDERED: Zolpidem Tartrate 5 MG TAB PO SCH (21:00)
--- NOTE | 2019-11-21 03:32 | DIS ---
DATE OF ADMISSION: 11/19/2019 DATE OF DISCHARGE: 11/20/2019 RESIDENT: Kayla Sesay DO ADMITTING ATTENDING: Kim Zhang MD DISCHARGE ATTENDING: Troy Baldwin MD CONSULTS: None. PROCEDURES: None. PRIMARY DIAGNOSIS: Hypertensive urgency. SECONDARY DIAGNOSES: 1. Indeterminate troponin. 2. Epigastric pain with history of gastric ulcers. DISCHARGE MEDICATIONS: Sucralfate 1 g p.o. t.i.d. for 14 days, amlodipine besylate/benazepril 10/20 mg capsule one p.o. daily, clonazepam 0.5 mg p.o. b.i.d., pantoprazole 40 mg p.o. daily, tizanidine 4 mg p.o. b.i.d., zolpidem 10 mg p.o. at bedtime. DISCONTINUED MEDICATIONS: none HOSPITAL COURSE: The patient is a 59-year-old female with history of hypertension, gastric ulcers, chronic pancreatitis, and chronic pain, status post back surgery who presents to the ED with complaints of elevated BPs ranging 140s to 160s at home for the past few weeks. She was seen by a technical support associate in [place] yesterday who began a new bp medication, unknown initially. She reports she has had loss of taste, loss of smell, dizziness, nausea, and shortness of breath while walking around for the past 3 weeks. Had a positive COVID exposure at work 1 month ago, tested negative 4 days ago. The patient complains of left upper and epigastric abdominal pain radiating to the back for the past few weeks. She describes the pain as similar with her history of chronic pancreatitis. No melena, hematochezia, or hematemesis. She also reports feelings of depression related to her and 2 sons . In the ED, the patient was afebrile and blood pressure initially 190/110, downtrending to 140s/70s. She received 1 L of normal saline. Given GI cocktail, but reportedly vomited in the bathroom unobserved. On exam, patient had mild tenderness to the left upper quadrant. EKG showed T-wave inversion in V1 to V4. No ST-segment changes. Normal sinus rhythm. Patient reportedly had old EKG in the hospital with some T-wave inversions. Patient's troponins were trended, initially 0.069 and then became negative x2. Denies chest pain. HEART score of 3. Plan is that patient followup with her technical support associate if she would like to consider a stress, has an appointment on the of this month. Patient has a history of gastric ulcers and reportedly has not been taking her PPI at home since may. She was started on sucralfate and was instructed to follow up with GI outpatient for possible EGD. Patient encouraged to restart her PPI. Her new home bp medication was found, amlodipine/benazepril, and was restarted. Patient' s PDMP shows multiple physicians prescribing [place], tramadol, and clonazepam. Patient was discharged home with instructions to follow up closely with Cardiology, GI, and her primary care physician. DISPOSITION: Stable. DISCHARGE INSTRUCTIONS: Location: Home. Diet: Regular. Activity: Ad emmanuelle. Followup: With your technical support associate on the as planned. Follow up with GI in 7-14 days. Follow up with primary care in 7 to 14 days. Job ID: [id number] MTDD
[2019-11-21] MEDS ORDERED: Amlodipine 5 mg/Benazepril 10 mg CAP PO SCH ×2 (09:00)
== END 2019-11-20 12:46 | disposition home or self-care (01) ==
LOC: ERS 17:26 → 2SW 21:39
PROVIDERS: ADMIT Family Medicine; ATTEND Family Medicine
DX: I16.0 Hypertensive urgency (principal); I10 Essential (primary) hypertension; R79.89 Other specified abnormal findings of blood chemistry; R10.12 Left upper quadrant pain; R10.13 Epigastric pain; R94.31 Abnormal electrocardiogram [ECG] [EKG]; K27.9 Peptic ulcer, site unspecified, unspecified as acute or chronic, without hemorrhage or perforation; K86.1 Other chronic pancreatitis; G89.29 Other chronic pain; F32.9 Major depressive disorder, single episode, unspecified; Z79.899 Other long term (current) drug therapy; Z88.5 Allergy status to narcotic agent; Z91.041 Radiographic dye allergy status; Z20.828 Contact with and (suspected) exposure to other viral communicable diseases
CPT/HCPCS: 36415; 71045; 74177; 80053; 82553; 83605; 83690; 84484; 85025; 87635; 93005; 96361; 96374; 96375; 96376; 99406; G0378; J1200; J2270; J2405; J2930; Q9967; S0028; U0003

== ENCOUNTER 2020-03-03 17:30 | Emergency (ER) | payer OTHER, SELFPAY ==
[2020-03-03] MEDS ORDERED: Ondansetron PF 4 MG/2 ML Vial ONE (20:11)
[2020-03-03] MEDS ORDERED: Morphine 4 MG/ML VIAL ONE ×2 (20:11→21:23)
[2020-03-03 20:17] LABS: #Eosinphils 0.3 thou/uL (0.0-0.7); #Monocytes 0.6 thou/uL (0.11-0.59); #Neutrophils 6.3 thou/uL (1.40-6.50); %Basophils 0.5 % (0.0-1.0); %Eosinophils 3.5 % (0.0-10.0); %Lymphocytes 21.9 % (21.0-51.0); %Neutrophils 68.1 % (42.0-75.0); Hemoglobin 12.8 g/dL (12.0-16.0); Mean Corpuscular HGB CONC 34.9 g/dL (32.0-36.0); Mean Corpuscular Hemoglobin 31.3 pg (27.0-31.0); Mean Corpuscular Volume 89.6 fL (78.0-98.0); Mean Platelet Volume 8.2 fL (7.4-10.4); Platelet Count 180 thou/uL (130-400); RBC Distribution Width 12.7 % (11.5-14.5); Red Blood Cell (RBC) Count 4.09 mill/uL (4.20-5.40); White Blood Cell (WBC) Count 9.3 thou/uL (4.8-10.8)
[2020-03-03 20:40] LABS: ALT (SGPT) 12 U/L (8-55); AST (SGOT) 20 U/L (5-34); Albumin 4.4 g/dL (3.4-4.8); Alkaline Phosphatase 96 U/L (40-110); Anion Gap 15 mmol/L (10-20); BUN (Urea Nitrogen) 12 mg/dL (9.8-20.1); Bilirubin, Total 0.7 mg/dL (0.2-1.2); Calc. Creatinine Clearance 0 mL/min (70-130); Calcium 9.6 mg/dL (7.8-10.44); Carbon Dioxide 26 mmol/L (23-31); Chloride 103 mmol/L (98-107); Globulin 2.7 g/dL (2.4-3.5); Glucose 106 mg/dL (80-115); Lipase 13 U/L (8-78); Potassium 3.9 mmol/L (3.5-5.1); Protein, Total 7.1 g/dL (6.0-8.3); Sodium 140 mmol/L (136-145)
[2020-03-03] MEDS ORDERED: diphenhydrAMINE 50 MG/ML VIAL ONE (21:24)
[2020-03-03] MEDS ORDERED: methylPREDNISolone Sod Succ/PF 125 MG/2 ML VIAL ONE (21:24)
[2020-03-03] MEDS ORDERED: Famotidine/PF 20 mg/2ml Vial ONE (21:24)
--- NOTE | 2020-03-03 22:28 | CT ---
EXAM: CT ABDOMEN AND PELVIS HISTORY: Epigastric pain. COMPARISON: 11/19/2019 Procedure: Multiple contiguous axial images were obtained and a CT of the abdomen and pelvis with IV contrast. C oronal reformats were performed. FINDINGS: Lower Chest: Chronic changes Vessels: Normal caliber aorta. Minimal atherosclerosis. Heart: Normal heart size. No significant pericardial fluid Abdomen: Portal vein:Patent Gallbladder: Surgically absent Liver: within normal limits. Pancreas: within normal limits. Spleen: within normal limits. Adrenals: within normal limits. Kidneys: Symmetric enhancement. No obstructive uropathy. Redemonstration of a prominent extrarenal pe lvis, left greater than right. Peritoneum: No ascites or free air, no fluid collection. Bowel: Limited evaluation due to the lack of oral contrast administration. No evidence of bowel obstr uction. Ileocecal junction is unremarkable. Surgically absent appendix. Scattered fecal material in a nondistended, nondilated colon. Mesentery and Retroperitoneum: No enlarged mesenteric or retroperitoneal lymph nodes. Abdominal Wall: within normal limits. Pelvis: Reproductive Organs: Surgically absent uterus. Pelvis: No mass, lymphadenopathy, free air or free fluid. Bladder: within normal limits. Bones: No lytic or blastic lesions in the osseous structures. Fusion changes of the lumbosacral junct ion. IMPRESSION: No evidence of acute intraabdominal\pelvic abnormality.
--- NOTE | 2020-03-08 16:51 | EKG ---
Test Reason : EMERGENCY EXAM Blood Pressure : / mmHG Vent. Rate : 076 BPM Atrial Rate : 076 BPM P-R Int : 000 ms QRS Dur : 082 ms QT Int : 402 ms P-R-T Axes : 000 058 027 degrees QTc Int : 452 ms Accelerated Junctional rhythm Nonspecific ST and T wave abnormality Abnormal ECG Confirmed by SILVER BLACK ([id number]), pictures editor KASSANDRA RICE ([id number]) on 03/08/2020 4:51:30 PM Referred By: Confirmed By:SILVER Erickson
== END 2020-03-04 00:02 | disposition home or self-care (01) ==
LOC: ERS 17:30
DX: R10.13 Epigastric pain (principal)
CPT/HCPCS: 36415; 74177; 80053; 83690; 84484; 85025; 93005; 96374; 96375; 96376; J1200; J2270; J2405; J2930; Q9967; S0028

== ENCOUNTER 2020-05-04 15:32 | Inpatient (IN) | payer SELFPAY ==
[2020-05-04] MEDS ORDERED: Ondansetron PF 4 MG/2 ML Vial ONE ×2 (16:18)
[2020-05-04] MEDS ORDERED: Morphine 4 MG/ML VIAL ONE ×3 (16:18→17:21)
[2020-05-04 16:31] LABS: #Basophils 0.1 thou/uL (0.0-0.2); #Eosinphils 0.6 thou/uL (0.0-0.7); #Lymphocytes 2.2 thou/uL (1.20-3.40); #Monocytes 0.8 thou/uL (0.11-0.59); #Neutrophils 5.3 thou/uL (1.40-6.50); %Basophils 0.7 % (0.0-1.0); %Eosinophils 6.3 % (0.0-10.0); %Monocytes 8.5 % (0.0-10.0); %Neutrophils 59.6 % (42.0-75.0); Hemoglobin 14.6 g/dL (12.0-16.0); Mean Corpuscular HGB CONC 33.5 g/dL (32.0-36.0); Mean Corpuscular Hemoglobin 30.9 pg (27.0-31.0); Mean Corpuscular Volume 92.1 fL (78.0-98.0); Mean Platelet Volume 8.1 fL (7.4-10.4); Platelet Count 215 thou/uL (130-400); Red Blood Cell (RBC) Count 4.72 mill/uL (4.20-5.40); White Blood Cell (WBC) Count 8.9 thou/uL (4.8-10.8)
[2020-05-04 16:50] LABS: ALT (SGPT) 14 U/L (8-55); AST (SGOT) 21 U/L (5-34); Albumin 4.5 g/dL (3.4-4.8); Alkaline Phosphatase 108 U/L (40-110); Anion Gap 13 mmol/L (10-20); BUN (Urea Nitrogen) 16 mg/dL (9.8-20.1); Bilirubin, Total 0.7 mg/dL (0.2-1.2); Calc. Creatinine Clearance 0 mL/min (70-130); Calcium 10.2 mg/dL (7.8-10.44); Carbon Dioxide 25 mmol/L (23-31); Chloride 105 mmol/L (98-107); Globulin 3.1 g/dL (2.4-3.5); Glucose 92 mg/dL (80-115); Lipase 33 U/L (8-78); Potassium 4.2 mmol/L (3.5-5.1); Protein, Total 7.6 g/dL (5.8-8.1); Sodium 139 mmol/L (136-145)
[2020-05-04 17:18] LABS: Bacteria/HPF None Seen HPF (None Seen); Bilirubin Negative (Negative); Blood, Urine Negative (Negative); Clarity Clear (Clear); Glucose, Urine (Dipstick) Normal (Negative); Ketone, Urine Negative (Negative); Leukocyte 75 Leu/uL (Negative); Nitrite Negative (Negative); Protein, Urine (Dipstick) Negative (Neg-Trace); RBC/HPF None Seen HPF (0-3); Specific Gravity, Urine 1.006 (1.002-1.036); Squamous Epithelial 0-3 HPF (0-3); Urobilinogen Normal mg/dL (Less than 2); WBC/HPF 0-3 HPF (0-3); pH, Urine 5.5 (5.0-9.0)
--- NOTE | 2020-05-04 18:05 | CT ---
CT ABDOMEN AND PELVIS WITHOUT CONTRAST: Comparison: 03-03-20, 11-19-19 History: Abdominal pain. History of pancreatitis. Technique: Multiple contiguous axial images were obtained in a CT of the abdomen and pelvis without c ontrast. Sagittal and coronal reformats were performed. FINDINGS: Patient is status post cholecystectomy. There is questionable stranding change surrounding the insula r portion of the pancreas which could represent focal pancreatitis. No focal liver lesions are seen. 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 The right kidney, adrenal glands, and spleen a re unremarkable although evaluation is limited without IV contrast. No free air is seen in the abdomen or pelvis. There is a small amount of free fluid in the pelvis. Large and small bowel are normal in caliber. Atherosclerotic calcifications are seen in the aorta. No abdominal or pelvic lymphadenopathy are seen. Degenerative and post-surgical changes are seen in the lumbar spine. The abdominal wall soft tissues and visualized inferior thorax are unremarkable. The patient has bilateral breast implants. IMPRESSION: 1. Possible focal pancreatitis in the insular portion of the pancreas. Please correlate with jamia lase and lipase values. POS: BONY
[2020-05-04] MEDS ORDERED: Morphine 4 MG/ML VIAL SLOW IVP PRN ×2 (19:34→20:25)
[2020-05-04] MEDS ORDERED: Ondansetron PF 4 MG/2 ML Vial IVP PRN (19:45)
[2020-05-04] MEDS ORDERED: D5 1/2 NS w/20 mEq KCL 1,000 ML IV SCH (19:45)
[2020-05-04] MEDS ORDERED: Ondansetron ODT 4 MG TAB SL PRN (19:45)
--- NOTE | 2020-05-04 20:37 | PDOC.FPRHP ---
- History of Present Illness Chief Complaint: abdominal pain, vomiting History of Present Illness: Patient is a 59F with PMHx of chronic pancreatitis, HTN, and anxiety that presented to the ED s/p 2 days of abdominal pain that radiates to the back. She states that she will have approximately 2 episodes of acute pancreatitis every year, and they generally occur the same way. She states that she has been nauseous and vomiting up anything she eats for the past 2 days. Denies diarrhea, fever. Has been followed by GI in the past and has never been given a cause of her pancreatitis. Endorses a "healthy" diet limiting fat intake, with alcohol consumption of ~1-2 glasses of wine 1x/week. ED Course: 4mg morphine, 8mg morphine, 1L NS, 8mg zofran - Allergies/Adverse Reactions Allergies Allergy/AdvReac Type Severity Reaction Status Date / Time codeine Allergy Verified 05/04/20 19:54 Iodinated Contrast Media Allergy Verified 05/04/20 19:54 - Home Medications Medication Instructions Recorded Confirmed Type clonazePAM [Klonopin] 0.5 mg PO BID PRN 05/24/19 05/04/20 History Zolpidem Tartrate [Ambien] 10 mg PO HS 11/19/19 05/04/20 History tiZANidine HCl [Tizanidine HCl] 4 mg PO BID PRN 11/19/19 05/04/20 History amLODIPine Besylate/Benazepril 1 each PO DAILY 11/20/19 05/04/20 History [Lotrel 10-20 mg Capsule] Betaxolol HCl [Kerlone] 10 mg PO DAILY 05/04/20 05/04/20 History Hydrochlorothiazide 25 mg PO DAILY PRN 05/04/20 05/04/20 History Meclizine HCl [Motion Sickness 25 mg PO DAILY 05/04/20 05/04/20 History Relief] - History PMHx: chronic pancreatitis, HTN, anxiety PSHx: bilateral knee replacements, lumbar fusion, cervical fusion, appendectomy, cholecystectomy, hysterectomy, tonsillectomy, heart cath x 2, multiple laparoscopies for endometriosis FHx: sister-renal carcinoma, mother-DM, father-CAD, alzheimers Social: non-smoker, no drug use, drinks 1-2 glasses of wine ~1x/wk - Review of Systems General: denies: fever/chills, weight/appetite/sleep changes Eyes: denies: eye pain, vision changes ENT: denies: nasal congestion, rhinorrhea Respiratory: denies: cough, shortness of breath Cardiovascular: denies: chest pain, edema Gastrointestinal: reports: nausea, vomiting, constipation, abdominal pain. denies: diarrhea Genitourinary: denies: incontinence, dysuria, polyuria Skin: denies: rashes, lesions Musculoskeletal: denies: pain, tenderness Neurological: denies: numbness, syncope Psychological: reports: anxiety. denies: depression - Vital signs BP: [117/71] HR: [59] RR: [16] Tmax: [98.3F] Pox: [98]% on [RA] Wt: [56.25kg] - Physical Exam Constitutional: NAD, awake, alert and oriented, well developed HEENT: normocephalic and atraumatic, EOMI, MMM Neck: supple, FROM Chest: no-tender to palpation Heart: normal S1/S2, other (bradycardic rate, regular rhythm) Lungs: CTAB, no respiratory distress, good air movement Abdomen: soft, bowel sounds present, other (ttp mid-epigastric area) Musculoskeletal: normal structure, normal tone, ROM grossly normal Neurological: no focal deficit, CN II-XII intact, normal sensation Skin: no rash/lesions, good turgor, capillary refill <2 seconds Heme/Lymphatic: no unusual bruising or bleeding, no purpura Psychiatric: normal mood and affect, good judgment and insight, intact recent and remote memory FMR H&P: Results - Labs Result Diagrams: 05/04/20 16:10 05/05/20 05:27 Lab results: WBC 8.9 thou/uL (4.8-10.8) 05/04/20 16:10 Hgb 14.6 g/dL (12.0-16.0) 05/04/20 16:10 Hct 43.5 % (36.0-47.0) 05/04/20 16:10 MCV 92.1 fL (78.0-98.0) 05/04/20 16:10 Plt Count 215 thou/uL (130-400) 05/04/20 16:10 Neutrophils % 59.6 % (42.0-75.0) 05/04/20 16:10 Sodium 139 mmol/L (136-145) 05/04/20 16:10 Potassium 4.2 mmol/L (3.5-5.1) 05/04/20 16:10 Chloride 105 mmol/L (98-107) 05/04/20 16:10 Carbon Dioxide 25 mmol/L (23-31) 05/04/20 16:10 BUN 16 mg/dL (9.8-20.1) 05/04/20 16:10 Creatinine 0.85 mg/dL (0.6-1.1) 05/04/20 16:10 Glucose 92 mg/dL (80-115) 05/04/20 16:10 Calcium 10.2 mg/dL (7.8-10.44) 05/04/20 16:10 Total Bilirubin 0.7 mg/dL (0.2-1.2) 05/04/20 16:10 AST 21 U/L (5-34) 05/04/20 16:10 ALT 14 U/L (8-55) 05/04/20 16:10 Alkaline Phosphatase 108 U/L (40-110) 05/04/20 16:10 Serum Total Protein 7.6 g/dL (5.8-8.1) 05/04/20 16:10 Albumin 4.5 g/dL (3.4-4.8) 05/04/20 16:10 Lipase 33 U/L (8-78) 05/04/20 16:10 Urine Ketones Negative mg/dL (Negative) 05/04/20 16:54 Urine Blood Negative (Negative) 05/04/20 16:54 Urine Nitrite Negative (Negative) 05/04/20 16:54 Ur Leukocyte Esterase 75 Gabby/uL (Negative) A 05/04/20 16:54 Urine RBC None Seen HPF (0-3) 05/04/20 16:54 Urine WBC 0-3 HPF (0-3) 05/04/20 16:54 Ur Squamous Epith Cells 0-3 HPF (0-3) 05/04/20 16:54 Urine Bacteria None Seen HPF (None Seen) 05/04/20 16:54 - EKG Interpretation EKG: VR 58bpm, PA 156ms, QRS 86ms, QTc 406ms; t-wave inversions aVR, V1, V2, V3 - Radiology Interpretation CT scan - abdomen Status: report reviewed by me (focal pancreatitis in insular portion of the pancreas) FMR H&P: A/P - Problem List (1) Anxiety Current Visit: Yes Status: Acute Code(s): F41.9 - ANXIETY DISORDER, UNSPECIFIED (2) Bradycardia Current Visit: Yes Status: Acute Code(s): R00.1 - BRADYCARDIA, UNSPECIFIED (3) Acute pancreatitis Current Visit: No Status: Acute Code(s): K85.90 - ACUTE PANCREATITIS WITHOUT NECROSIS OR INFECTION, UNSP Qualifiers: Pancreatitis type: idiopathic (4) Hypertension Current Visit: No Status: Acute Code(s): I10 - ESSENTIAL (PRIMARY) HYPERTENS ION - Plan Patient is a 59F with PMHx of chronic pancreatitis, HTN, and anxiety that is admitted for: #Acute on chronic pancreatitis -hx of chronic pancreatitis, diagnosed 2013; has seen GI in the past but not lately -has had a cholecystectomy, endorses "healthy diet" that is low in fat, and has 1-2 glasses wine/week -lipase 33, amylase 42 -Abd/pelvis CT: focal pancreatitis in insular portion of the pancreas -admitted to medical for acute pancreatitis, BISAP score 1 -NPO, can consider advancing diet as tolerated in the am -Maintenance IVF in the meantime -4mg morphine q4h prn for pain -zofran prn for nausea -FLP, A1C, TSH in am #HTN -patient reportedly has seen a exhibit cleaner in [place], Dr. Avila -continue home meds #Bradycardia -patient states this is chronic, asymptomatic -will continue to monitor #Anxiety -will hold clonazepam as patient reports she does not take this every day Diet: NPO DVTppx: lovenox Dispo: admitted for IVF and pain control for acute on chronic pancreatitis CODE: Full PCP: LV FMR H&P: Upper Level - Plan Date/Time: 05/04/202033 I, [], have evaluated this patient and agree with findings/plan as outlined by international tax manager resident. Pertinent changes/additions are listed here. Addendum - Attending - Attending Attestation Date/Time: 05/05/201818 I personally evaluated the patient and discussed the management with Dr. Alba. I agree with the History, Examination, Assessment and Plan documented above with any addition or exceptions noted below.
[2020-05-04] MEDS: Zolpidem Tartrate 5 MG TAB PO SCH (21:59)
[2020-05-04] MEDS: Lactated Ringer's 1,000 ML IV SCH (22:03)
[2020-05-04 22:31] VITALS: BMI 22.6
[2020-05-05] MEDS ORDERED: Morphine 4 MG/ML VIAL ONE ×2 (07:15→14:29)
[2020-05-05] MEDS ORDERED: Ondansetron PF 4 MG/2 ML Vial ONE ×2 (07:16→14:29)
[2020-05-05] MEDS ORDERED: Senokot S 8.6-50 MG TAB ONE (08:41)
[2020-05-05] MEDS ORDERED: Lisinopril 20 MG TAB ONE (08:41)
[2020-05-05] MEDS ORDERED: Amlodipine 10 MG TAB ONE (08:41)
[2020-05-05] MEDS ORDERED: Enoxaparin Sodium 40 MG/0.4 ML SYRINGE ONE (08:41)
[2020-05-05] MEDS: Lactated Ringer's 1,000 ML IV SCH ×2 (09:00→17:34)
[2020-05-05] MEDS: Senokot S 8.6-50 MG TAB PO SCH ×2 (09:10→20:52)
[2020-05-05] MEDS: Enoxaparin Sodium 40 MG/0.4 ML SYRINGE SC SCH (09:10)
[2020-05-05] MEDS: BETAXOLOL 10 MG PO SCH (11:21)
[2020-05-05] MEDS: Amlodipine 10 MG TAB PO SCH (11:21)
[2020-05-05] MEDS: Lisinopril 20 MG TAB PO SCH (11:21)
[2020-05-05 13:39] LABS: SARS-CoV-2 PCR by NAA Not Detected (NotDetected)
[2020-05-05] MEDS: Morphine 4 MG/ML VIAL SLOW IVP PRN ×2 (14:15→19:13)
[2020-05-05] MEDS: Ondansetron PF 4 MG/2 ML Vial IVP PRN ×2 (14:18→20:52)
[2020-05-05 18:16] LABS: ALT (SGPT) 262 U/L (8-55); AST (SGOT) 393 U/L (5-34); Albumin 3.3 g/dL (3.4-4.8); Alkaline Phosphatase 241 U/L (40-110); Anion Gap 10 mmol/L (10-20); BUN (Urea Nitrogen) 10 mg/dL (9.8-20.1); Calc. Creatinine Clearance 73 mL/min (70-130); Calcium 8.7 mg/dL (7.8-10.44); Carbon Dioxide 26 mmol/L (23-31); Cardiac Risk 2.5 (Less than 4.5); Chloride 108 mmol/L (98-107); Cholesterol 145 mg/dl (< 200 Desired); Globulin 2.2 g/dL (2.4-3.5); Glucose 79 mg/dL (80-115); HDL Cholesterol 59 mg/dL (>60 Neg Risk); LDL Cholesterol, Calculated 76 mg/dL; Protein, Total 5.5 g/dL (5.8-8.1); Sodium 140 mmol/L (136-145); Triglycerides 51 mg/dL (Less than 150)
[2020-05-05 18:29] LABS: #Eosinphils 0.3 thou/uL (0.0-0.7); #Lymphocytes 1.7 thou/uL (1.20-3.40); #Monocytes 0.5 thou/uL (0.11-0.59); #Neutrophils 3.3 thou/uL (1.40-6.50); %Basophils 0.3 % (0.0-1.0); %Eosinophils 5.5 % (0.0-10.0); %Lymphocytes 28.5 % (21.0-51.0); %Monocytes 9.3 % (0.0-10.0); %Neutrophils 56.4 % (42.0-75.0); Hemoglobin 12.1 g/dL (12.0-16.0); Mean Corpuscular HGB CONC 33.3 g/dL (32.0-36.0); Mean Corpuscular Hemoglobin 31.3 pg (27.0-31.0); Mean Platelet Volume 8.7 fL (7.4-10.4); Platelet Count 173 thou/uL (130-400); RBC Distribution Width 12.1 % (11.5-14.5); Red Blood Cell (RBC) Count 3.88 mill/uL (4.20-5.40); White Blood Cell (WBC) Count 5.8 thou/uL (4.8-10.8)
[2020-05-05] MEDS: Zolpidem Tartrate 5 MG TAB PO SCH (20:52)
[2020-05-05] MEDS ORDERED: Ibuprofen 600 MG TAB PO PRN (23:43)
[2020-05-05] MEDS ORDERED: Acetaminophen 325 MG TAB PO PRN (23:43)
[2020-05-06] MEDS: Ondansetron PF 4 MG/2 ML Vial IVP PRN ×3 (02:38→19:29)
[2020-05-06] MEDS ORDERED: Morphine 2 MG/ML VIAL SLOW IVP SCH (03:30)
[2020-05-06] MEDS: Lactated Ringer's 1,000 ML IV SCH ×2 (03:33→13:39)
--- NOTE | 2020-05-06 08:25 | PDOC.FM ---
- Subjective Subjective: Please see paper chart for 05/05 progress note. Major updates to care on this day included decreasing morphine dosing and attempting to advance diet. Today patient seen at bedside, states her pain is "tolerable" after receiving morphine dose. She does complain of some overall fatigue. Denies nausea/vomiting and would like to attempt eating some chicken broth this morning. She is having significant RUQ and moderate epigastric pain with light palpation. She additionally complains of a worsening sore throat and anterior neck pain. She has had a history of cholecystectomy in 2013 and denies hepatitis history. Famil y history updated to include son with hypothyroidism and sister who had thyroid removed last year for possible concern of cancer. Patient also states she sees Dr. Avila in [place], [place] for cardiology, has had hx of tachycardia with runs into the 180s, negative workup from him and has appointment with him "soon". - Objective MAR Reviewed: Yes Vital Signs & Weight: Vital Signs (12 hours) Pulse BP Pulse Ox 05/06/20 02:45 49 L 132/72 05/05/20 20:26 97 Weight Weight 59.874 kg Result Diagrams: 05/05/20 05:27 05/06/20 10:18 Radiology Reviewed by me: Yes Phys Exam - Physical Examination Constitutional: NAD HEENT: moist MMs, sclera anicteric, oral pharynx no lesions Neck: no nodes, supple TTP over thyroid, no nodules palpated Respiratory: clear to auscultation bilateral Cardiovascular: no significant murmur bradycardic (HR 49 bpm) Gastrointestinal: no distention, positive bowel sounds TTP over RUQ and epigastric regions Musculoskeletal: no edema, pulses present Neurological: normal sensation, moves all 4 limbs Lymphatic: no nodes Psychiatric: normal affect, A&O x 3 Skin: no rash, normal turgor Dx/Plan (1) Bradycardia Code(s): R00.1 - BRADYCARDIA, UNSPECIFIED Status: Acute (2) Acute pancreatitis Code(s): K85.90 - ACUTE PANCREATITIS WITHOUT NECROSIS OR INFECTION, UNSP Status: Acute Qualifiers: Pancreatitis type: idiopathic - Plan Plan: Patient is a 59F with PMHx of chronic pancreatitis, HTN, and anxiety that is admitted for: #Acute on chronic pancreatitis -hx of chronic pancreatitis, diagnosed 2013; has seen GI in the past but not lately -has had a cholecystectomy, endorses "healthy diet" that is low in fat, and has 1-2 glasses wine/week -lipase 33, amylase 42 -Abd/pelvis CT: focal pancreatitis in insular portion of the pancreas -BISAP score 1 -advancing diet as tolerated today, start with clear liquids (pt prefers chicken broth) -Maintenance IVF LR @ 100 until tolerating PO -2 mg morphine q4h prn for pain; patient refuses Tylenol or Motrin for pain control -Zofran prn for nausea -FLP wnl, A1C 5.0 -TSH 4.94, will check T3 & T4 today #Transaminitis, acute -admission labs: AST 21, ALT 14, Alk phos 108 -labs 05/05: AST 393, ALT 262, Alk Phos 241 -will repeat CMP today, check acute Hepatitis panel -RUQ U/S to further evaluate #HTN -continue home meds #Bradycardia -possibly due to morphine -patient gives conflicting history at times stating she has chronic, asymptomatic bradycardia and at other times states she has chronic tachycardia with runs up to 180 bpm. Followed by groundskeeping maintenance Dr. Avila in [place]. Review of past hospitalizations at [facility] show HR in 60s-80s -will continue to monitor #Anxiety -will hold clonazepam as patient reports she does not take this every day Diet: Clear liquids DVTppx: lovenox CODE: Full PCP: LV Dispo: Stable, admitted to inpatient on medical unit. Continue pain control and diagnostic workup. Advance diet today as tolerated. Addendum - Attending - Attending Attestation Date/Time: 05/06/20 3075 I personally evaluated the patient and discussed the management with Dr. Jackman. I agree with the History, Examination, Assessment and Plan documented above with any addition or exceptions noted below. Curbsided GI - will consider MRCP if LFT's worsen.
[2020-05-06] MEDS: Enoxaparin Sodium 40 MG/0.4 ML SYRINGE SC SCH (10:06)
[2020-05-06] MEDS: Senokot S 8.6-50 MG TAB PO SCH ×2 (10:06→19:25)
[2020-05-06] MEDS: Morphine 4 MG/ML VIAL SLOW IVP PRN ×3 (10:08→19:28)
[2020-05-06] MEDS: Amlodipine 10 MG TAB PO SCH ×2 (10:19→11:02)
[2020-05-06] MEDS: Lisinopril 20 MG TAB PO SCH ×2 (10:20→11:02)
--- NOTE | 2020-05-06 10:32 | ULT ---
RIGHT UPPER QUADRANT ULTRASOUND: Date; 05/06/2020 HISTORY: Pancreatitis. Abdominal pain. Elevation in transaminase over 24 hours. FINDINGS: Mildly increased echogenicity of the liver is seen without focal mass or abnormal biliary ductal dila tation. The patient is post cholecystectomy. The common duct measures 6.0 mm in diameter. No abnormal biliary ductal dilatation is seen. The right kidney appears normal. The visualized portions of the p ancreas demonstrate mildly increased echogenicity. No free fluid is seen in Morison's pouch. There is trace fluid in Morison's pouch. IMPRESSION: 1. Findings suggestive of fatty liver. 2. Status post cholecystectomy. 3. Trace fluid in Morison's pouch. POS: MZA
[2020-05-06 10:51] LABS: ALT (SGPT) 181 U/L (8-55); AST (SGOT) 133 U/L (5-34); Albumin 3.9 g/dL (3.4-4.8); Alkaline Phosphatase 269 U/L (40-110); Anion Gap 19 mmol/L (10-20); BUN (Urea Nitrogen) 15 mg/dL (9.8-20.1); Bilirubin, Total 0.7 mg/dL (0.2-1.2); Calc. Creatinine Clearance 73 mL/min (70-130); Calcium 9.4 mg/dL (7.8-10.44); Carbon Dioxide 17 mmol/L (23-31); Chloride 106 mmol/L (98-107); Globulin 2.9 g/dL (2.4-3.5); Lipase 18 U/L (8-78); Potassium 4.2 mmol/L (3.5-5.1); Protein, Total 6.8 g/dL (5.8-8.1); Sodium 138 mmol/L (136-145)
[2020-05-06 10:55] LABS: Glucose 58 mg/dL (80-115)
[2020-05-06 11:00] LABS: T4 8.3 ug/dL (4.87-11.72)
[2020-05-06 11:16] LABS: HBCM Index 0.08 S/CO (0-0.79); HBSAg Index 0.22 S/CO (0-0.99); Hep A IgM AB Non-Reactive (NonReactive); Hep A IgM S/CO 0.14 S/CO (0-0.79); Hep B Surf Ag Non-Reactive S/CO (NonReactive); Hep C IgG Ab Non-Reactive (NonReactive); Hep C Index 0.06 S/CO (0-0.79); Hepatitis B Core IgM Abs Non-Reactive (NonReactive)
[2020-05-06] MEDS: BETAXOLOL 10 MG PO SCH (13:39)
[2020-05-06] MEDS: Sodium Chloride 0.9% 1,000 ML IV SCH ×3 (13:44→23:49)
[2020-05-06] MEDS: Zolpidem Tartrate 5 MG TAB PO SCH (19:27)
[2020-05-07] MEDS: Ondansetron PF 4 MG/2 ML Vial IVP PRN ×4 (01:20→17:03)
[2020-05-07] MEDS: Morphine 4 MG/ML VIAL SLOW IVP PRN ×4 (01:20→17:02)
[2020-05-07] MEDS: Sodium Chloride 0.9% 1,000 ML IV SCH ×4 (05:52→20:21)
[2020-05-07 07:22] LABS: ALT (SGPT) 108 U/L (8-55); AST (SGOT) 61 U/L (5-34); Albumin 3.1 g/dL (3.4-4.8); Alkaline Phosphatase 189 U/L (40-110); Anion Gap 12 mmol/L (10-20); BUN (Urea Nitrogen) 7 mg/dL (9.8-20.1); Bilirubin, Total 0.4 mg/dL (0.2-1.2); Calc. Creatinine Clearance 80 mL/min (70-130); Calcium 8.4 mg/dL (7.8-10.44); Carbon Dioxide 20 mmol/L (23-31); Chloride 111 mmol/L (98-107); Globulin 2.7 g/dL (2.4-3.5); Glucose 85 mg/dL (80-115); Potassium 4.2 mmol/L (3.5-5.1); Protein, Total 5.8 g/dL (5.8-8.1); Sodium 139 mmol/L (136-145)
[2020-05-07] MEDS: Senokot S 8.6-50 MG TAB PO SCH ×2 (07:48→20:16)
[2020-05-07] MEDS: Amlodipine 10 MG TAB PO SCH (07:48)
[2020-05-07] MEDS: Lisinopril 20 MG TAB PO SCH (07:48)
[2020-05-07] MEDS: Cepastat Lozenges 1 LOZ PO PRN ×3 (07:49→20:21)
--- NOTE | 2020-05-07 10:15 | PDOC.FM ---
- Subjective Subjective: Patient feeling okay this morning. No further episodes of nausea/vomiting since admission. She tried drinking chicken broth yesterday but it causes her to have abdominal cramping/spasms. Says Morphine makes pain "tolerable" but still uncomfortable. - Objective MAR Reviewed: Yes Vital Signs & Weight: Vital Signs (12 hours) Temp Pulse Resp BP Pulse Ox 05/07/20 07:48 51 L 05/07/20 04:00 97.5 F L 51 L 18 107/61 96 05/07/20 00:00 97.3 F L 52 L 18 104/65 96 Weight Admit Weight 59.874 kg Weight 59.874 kg Result Diagrams: 05/05/20 05:27 05/07/20 06:38 Phys Exam - Physical Examination Constitutional: NAD HEENT: moist MMs Neck: supple, full ROM Respiratory: clear to auscultation bilateral Cardiovascular: RRR, no significant murmur Gastrointestinal: soft, no distention, positive bowel sounds TTP over epigastric & RUQ areas Musculoskeletal: no edema, pulses present Neurological: moves all 4 limbs Psychiatric: normal affect, A&O x 3 Skin: no rash, normal turgor Dx/Plan (1) Bradycardia Code(s): R00.1 - BRADYCARDIA, UNSPECIFIED Status: Acute (2) Acute pancreatitis Code(s): K85.90 - ACUTE PANCREATITIS WITHOUT NECROSIS OR INFECTION, UNSP Status: Acute Qualifiers: Pancreatitis type: idiopathic - Plan Plan: Patient is a 59F with PMHx of chronic pancreatitis, HTN, and anxiety that is admitted for: #Acute on chronic pancreatitis -hx of chronic pancreatitis, diagnosed 2013; has seen GI in the past but not lately -has had a cholecystectomy, endorses "healthy diet" that is low in fat, and has 1-2 glasses wine/week -lipase 33, amylase 42 -Abd/pelvis CT: focal pancreatitis in insular portion of the pancreas -BISAP score 1 -advancing diet as tolerated today, start with clear liquids & trial of applesauce -s/p 2L in ED, NS @ 200 x 8 hours, now Maintenance IVF NS @ 150 until tolerating PO -2 mg morphine q4h prn for pain; patient refuses Tylenol or Motrin for pain control -will add on Bentyl this morning for additional pain management -Zofran prn for nausea -FLP wnl, A1C 5.0 -TSH 4.94, low T3; FT4 wnl, T4 wnl #Transaminitis, acute -admission labs: AST 21, ALT 14, Alk phos 108 -labs 05/05: AST 393, ALT 262, Alk Phos 241 -repeat CMP shows trending down -if new rising/elevation then consider MRCP -acute Hepatitis panel negative -RUQ U/S shows fatty liver and trace fluid in Santana's pouch #HTN -continue home meds #Bradycardia -possibly due to morphine; will hold Betaxolol -patient gives conflicting history at times stating she has chronic, asympt omatic bradycardia and at other times states she has chronic tachycardia with runs up to 180 bpm. Followed by retail personal banker Dr. Avila in [place], [place]. Review of past hospitalizations at [facility] show HR in 60s-80s -will continue to monitor #Anxiety -will hold clonazepam as patient reports she does not take this every day Diet: Clear liquids, adv as tolerated DVTppx: lovenox CODE: Full PCP: LV Dispo: Stable, admitted to inpatient on medical unit. Continue pain control. Advance diet today as tolerated.
--- NOTE | 2020-05-07 10:46 | PRG ---
DATE OF SERVICE: 05/07/2020 This is a daily note. SUBJECTIVE: Ms. Joyce is a 59-year-old lady who was admitted with an acute flare of chronic pancreatitis. In the interim, her enzymes did increase significantly as did her alkaline phosphatase. Her bilirubin remained normal. GI was consulted and suggested that since the enzymes were returning to her dropping instead of increasing to just watch the patient. Should they arise again significantly, they would perform MRCP. In the event, Ms. Joyce is not having any significant pain, resting comfortably, and we are gradually increasing her diet. Job ID: [id number]
[2020-05-07] MEDS: Dicyclomine 20 MG TAB PO SCH ×4 (11:58→20:16)
[2020-05-07] MEDS: Zolpidem Tartrate 5 MG TAB PO SCH (20:16)
[2020-05-08] MEDS: Morphine 4 MG/ML VIAL SLOW IVP PRN ×5 (01:54→21:06)
[2020-05-08] MEDS: Ondansetron PF 4 MG/2 ML Vial IVP PRN ×5 (01:54→22:44)
[2020-05-08] MEDS: Amlodipine 10 MG TAB PO SCH (08:40)
[2020-05-08] MEDS: Lisinopril 20 MG TAB PO SCH (08:40)
[2020-05-08] MEDS: Senokot S 8.6-50 MG TAB PO SCH ×2 (08:40→21:06)
[2020-05-08] MEDS: Sodium Chloride 0.9% 1,000 ML IV SCH ×3 (08:40→21:00)
[2020-05-08] MEDS: Dicyclomine 20 MG TAB PO SCH ×4 (08:40→21:06)
--- NOTE | 2020-05-08 08:48 | PDOC.FM ---
- Subjective Subjective: Patient able to tolerate eating 1 container of applesauce yesterday. Says taking the Bentyl did help her abdominal cramping & spasms. Morphine also helping with overall pain. States she will not eat/drink any of the liquids that dietary brings her and refuses to eat pureed foods. Requests soft solids. Counseled that patient should have slow return of full heavy solids. Discussed plan to have applesauce this morning and mashed potatoes for lunch and then reassess for dinner. - Objective MAR Reviewed: Yes Vital Signs & Weight: Vital Signs (12 hours) Temp Pulse Resp BP Pulse Ox 05/08/20 08:40 86 05/08/20 07:42 97.7 F 86 17 128/80 93 L 05/08/20 04:12 98.1 F 67 16 106/65 100 Weight Admit Weight 59.874 kg Weight 59.874 kg Result Diagrams: 05/05/20 05:27 05/07/20 06:38 Phys Exam - Physical Examination Constitutional: NAD HEENT: moist MMs Neck: supple, full ROM Respiratory: clear to auscultation bilateral Cardiovascular: RRR, no significant murmur Gastrointestinal: soft, no distention, positive bowel sounds TTP in epigastric area Musculoskeletal: no edema, pulses present Neurological: normal sensation, moves all 4 limbs Psychiatric: normal affect, A&O x 3 Skin: no rash Dx/Plan (1) Bradycardia Code(s): R00.1 - BRADYCARDIA, UNSPECIFIED Status: Acute (2) Acute pancreatitis Code(s): K85.90 - ACUTE PANCREATITIS WITHOUT NECROSIS OR INFECTION, UNSP Status: Acute Qualifiers: Pancreatitis type: idiopathic - Plan Plan: Patient is a 59F with PMHx of chronic pancreatitis, HTN, and anxiety that is admitted for: #Acute on chronic pancreatitis -hx of chronic pancreatitis, diagnosed 2013; has seen GI in the past but not lately -has had a cholecystectomy, endorses "healthy diet" that is low in fat, and has 1-2 glasses wine/week -lipase 33, amylase 42 -Abd/pelvis CT: focal pancreatitis in insular portion of the pancreas -BISAP score 1 -advancing diet as tolerated today, another trial of applesauce for breakfast and mashed potatoes for lunch today, reassess diet for dinner -s/p 2L in ED, NS @ 200 x 8 hours, now Maintenance IVF NS @ 150 until tolerating PO -2 mg morphine q4h prn for pain; patient refuses Tylenol or Motrin for pain control -jack Bentyl this morning for additional pain management -Zofran prn for nausea -FLP wnl, A1C 5.0 -TSH 4.94, low T3; FT4 wnl, T4 wnl #Transaminitis, acute -admission labs: AST 21, ALT 14, Alk phos 108 -labs 05/05: AST 393, ALT 262, Alk Phos 241 -repeat serial CMP's shows trending down -if new rising/elevation then consider MRCP -acute Hepatitis panel negative -RUQ U/S shows fatty liver and trace fluid in Santana's pouch #HTN -continue home meds #Bradycardia -possibly due to morphine; will hold Betaxolol -patient gives conflicting history at times stating she has chronic, asymptomatic bradycardia and at other times states she has chronic tachycardia with runs up to 180 bpm. Followed by item processing clerk Dr. Avila in [place], [place]. Review of past hospitalizations at [facility] show HR in 60s-80s -will continue to monitor #Anxiety -will hold clonazepam as patient reports she does not take this every day Diet: Full liquids, adv as tolerated DVTppx: lovenox CODE: Full PCP: LV Dispo: Stable, admitted to inpatient on medical unit. Continue pain control. A dvance diet today as tolerated.
[2020-05-08] MEDS: Cepastat Lozenges 1 LOZ PO PRN ×3 (11:41→17:10)
--- NOTE | 2020-05-08 11:47 | PRG ---
DATE OF SERVICE: 05/08/2020 Ms. Joyce is a bit upset about her clear liquid diet. We will advance her to a regular diet in anticipation of discharging hopefully soon. She is in no distress and having minimal pain well relieved with her current regimen. Job ID: [id number]
[2020-05-08] MEDS ORDERED: Acetaminophen 325 MG TAB PO PRN (16:46)
[2020-05-08] MEDS ORDERED: Acetaminophen 325 MG TAB PO SCH (17:00)
[2020-05-08 19:18] LABS: SARS-CoV-2 NAA Rapid Test Not Detected (NotDetected)
[2020-05-08] MEDS: Zolpidem Tartrate 5 MG TAB PO SCH (21:06)
[2020-05-09] MEDS: Sodium Chloride 0.9% 1,000 ML IV SCH ×3 (04:01→15:29)
[2020-05-09] MEDS: Ondansetron PF 4 MG/2 ML Vial IVP PRN ×3 (04:02→15:28)
[2020-05-09] MEDS: Morphine 4 MG/ML VIAL SLOW IVP PRN ×4 (04:02→20:04)
[2020-05-09] MEDS: Cepastat Lozenges 1 LOZ PO PRN ×4 (04:04→18:20)
[2020-05-09 06:48] LABS: #Basophils 0.1 thou/uL (0.0-0.2); #Eosinphils 0.5 thou/uL (0.0-0.7); #Lymphocytes 1.1 thou/uL (1.20-3.40); #Monocytes 0.8 thou/uL (0.11-0.59); #Neutrophils 7.5 thou/uL (1.40-6.50); %Basophils 0.6 % (0.0-1.0); %Eosinophils 5.2 % (0.0-10.0); %Lymphocytes 10.8 % (21.0-51.0); %Monocytes 8.4 % (0.0-10.0); Hemoglobin 14.4 g/dL (12.0-16.0); Mean Corpuscular HGB CONC 33.8 g/dL (32.0-36.0); Mean Corpuscular Volume 91.7 fL (78.0-98.0); Platelet Count 174 thou/uL (130-400); RBC Distribution Width 11.8 % (11.5-14.5); Red Blood Cell (RBC) Count 4.64 mill/uL (4.20-5.40)
[2020-05-09] MEDS ORDERED: predniSONE 50 MG TAB PO SCH ×2 (07:00→19:00)
[2020-05-09 07:08] LABS: ALT (SGPT) 70 U/L (8-55); AST (SGOT) 29 U/L (5-34); Albumin 3.5 g/dL (3.4-4.8); Alkaline Phosphatase 188 U/L (40-110); Anion Gap 12 mmol/L (10-20); BUN (Urea Nitrogen) Less than 4 mg/dL (9.8-20.1); Bilirubin, Total 0.5 mg/dL (0.2-1.2); Calc. Creatinine Clearance 78 mL/min (70-130); Calcium 8.7 mg/dL (7.8-10.44); Carbon Dioxide 22 mmol/L (23-31); Chloride 110 mmol/L (98-107); Globulin 2.7 g/dL (2.4-3.5); Glucose 94 mg/dL (80-115); Potassium 3.4 mmol/L (3.5-5.1); Protein, Total 6.2 g/dL (5.8-8.1); Sodium 141 mmol/L (136-145)
--- NOTE | 2020-05-09 08:19 | PDOC.FM ---
- Subjective Subjective: Patient continues to refuse to eat any meals. She ate 1 container of applesauce and drank some Yolis mist for yesterday. She has been counseled multiple times that she may eat whatever she likes. Patient states she has no appetite and now newly complaining of loss of sense of taste & smell. Patient has continued epigastric pain, this has not changed in severity or location since admission. Yesterday afternoon patient had fever up to 102.7F max which was new since admission. Additionally she complained of sore throat, cough, and myalgias. She was tested for COVID and Flu which were both negative. Out of an abundance of caution, given current new symptoms, patient will be treated with isolation precautions as if she were COVID positive as the current testing for COVID may not cover certain new variants. - Objective MAR Reviewed: Yes Vital Signs & Weight: Vital Signs (12 hours) Temp Pulse Resp BP BP Pulse Ox 05/09/20 07:28 99.7 F H 93 19 123/69 97 05/09/20 04:00 98.5 F 78 18 112/64 93 L 05/09/20 00:00 97.9 F 67 18 104/63 91 L Weight Admit Weight 59.874 kg Weight 59.874 kg Result Diagrams: 05/09/20 06:40 05/09/20 06:40 Phys Exam - Physical Examination Constitutional: NAD HEENT: moist MMs Neck: supple Respiratory: no wheezing, no rhonchi, clear to auscultation bilateral Cardiovascular: RRR, no significant murmur Gastrointestinal: soft, no distention TTP over epigastric area Musculoskeletal: no edema, pulses present Neurological: normal sensation, moves all 4 limbs Lymphatic: no nodes Psychiatric: A&O x 3 Deviation from normal: anxious affect Skin: no rash, normal turgor Dx/Plan (1) Bradycardia Code(s): R00.1 - BRADYCARDIA, UNSPECIFIED Status: Acute (2) Acute pancreatitis Code(s): K85.90 - ACUTE PANCREATITIS WITHOUT NECROSIS OR INFECTION, UNSP Status: Acute Qualifiers: Pancreatitis type: idiopathic (3) Suspected COVID-19 virus infection Code(s): Z20.822 - CONTACT WITH AND (SUSPECTED) EXPOSURE TO COVID-19 Status: Acute - Plan Plan: Patient is a 59F with PMHx of chronic pancreatitis, HTN, and anxiety that is adm itted for: #Acute on chronic pancreatitis -hx of chronic pancreatitis, diagnosed 2013; has seen GI in the past but not lately -has had a cholecystectomy, endorses "healthy diet" that is low in fat, and has 1-2 glasses wine/week -lipase 33, amylase 42 -Abd/pelvis CT: focal pancreatitis in insular portion of the pancreas -BISAP score 1 -advancing diet as tolerated today, patient can have any food by request, Dietary consulted 05/08 to discuss options with patient has she has been refusing any type of food/diet -s/p 2L in ED, NS @ 200 x 8 hours, now Maintenance IVF NS @ 150 until tolerating PO -2 mg morphine q4h prn for pain; patient refuses Motrin for pain control -jack Bentyl this morning for additional pain management -will agree to Tylenol for fever management -Zofran prn for nausea -FLP wnl, A1C 5.0 -TSH 4.94, low T3; FT4 wnl, T4 wnl -obtain CT W/Contrast Abdomen/Pelvis (will perform 9 AM on 05/10) due to new fever to rule out possible pancreatic abscess -patient with iodine allergy, will pre-treat with prednisone and benadryl per protocol #COVID19 infection suspected -patient tested negative for COVID x 2 since admission, however new symptoms on 05/08 of fever, cough, sore throat, myalgias, loss of sense of taste or smell so will place on isolation precautions -Flu negative #Transaminitis, acute -admission labs: AST 21, ALT 14, Alk phos 108 -labs 05/05: AST 393, ALT 262, Alk Phos 241 -repeat serial CMP's shows trending down -if new rising/elevation then consider MRCP -acute Hepatitis panel negative -RUQ U/S shows fatty liver and trace fluid in Santana's pouch #HTN -continue home meds #Bradycardia -possibly due to morphine; will hold Betaxolol -since holding medication her HR has been in 70s -patient gives conflicting history at times stating she has chronic, asymptomatic bradycardia and at other times states she has chronic tachycardia with runs up to 180 bpm. Followed by principal software architect Dr. Avila in [place], [place]. Review of past hospitalizations at [facility] show HR in 60s-80s -will continue to monitor #Anxiety -will hold clonazepam as patient reports she does not take this every day Diet: Regular DVTppx: lovenox CODE: Full PCP: [facility] Dispo: Stable, admitted to inpatient on medical unit. Continue pain control. Advance diet today as tolerated. CT w/contrast of abdomen/pelvis to be performed on 05/10 after pre-treatment due to iodine allergy.
[2020-05-09] MEDS ORDERED: BETAXOLOL 10 MG PO SCH (09:00)
[2020-05-09] MEDS: Dicyclomine 20 MG TAB PO SCH ×4 (09:14→20:04)
[2020-05-09] MEDS: Senokot S 8.6-50 MG TAB PO SCH ×2 (09:14→20:04)
[2020-05-09] MEDS: Lisinopril 20 MG TAB PO SCH (09:14)
[2020-05-09] MEDS: Benzonatate 100 MG CAP PO PRN ×2 (09:14→15:27)
[2020-05-09] MEDS: Amlodipine 10 MG TAB PO SCH (09:14)
--- NOTE | 2020-05-09 12:52 | PRG ---
DATE OF SERVICE: 05/09/2020 Ms. Joyce had an episode of fever yesterday and we are concerned about the possibility of a pancreatic abscess. We are arranging for a CT of the abdomen later today. She is still not eating well. I discussed the case with Dr. Vanessa Jackman and agree with her assessment and plan. Job ID: [id number]
[2020-05-09] MEDS ORDERED: diphenhydrAMINE 50 MG CAP PO SCH (19:00)
[2020-05-09] MEDS: Zolpidem Tartrate 5 MG TAB PO SCH (20:03)
[2020-05-10] MEDS: Sodium Chloride 0.9% 1,000 ML IV SCH ×4 (00:30→22:23)
[2020-05-10] MEDS ORDERED: predniSONE 50 MG TAB PO SCH ×2 (01:00→07:00)
[2020-05-10] MEDS: Morphine 4 MG/ML VIAL SLOW IVP PRN ×4 (02:02→21:36)
[2020-05-10] MEDS: Ondansetron PF 4 MG/2 ML Vial IVP PRN ×3 (02:03→14:58)
--- NOTE | 2020-05-10 06:08 | PDOC.FM ---
- Subjective Subjective: Pt awake and alert this morning on exam. She continues to complain of abdominal pain, worse with food. She did not eat any food yesterday saying that "her food was cold" and that she has no appetite because she lost her sense of taste and smell yesterday. Also c/o diffuse myalgias. - Objective Vital Signs & Weight: Vital Signs (12 hours) Temp Pulse Resp BP Pulse Ox 05/10/20 04:47 97.5 F L 82 18 97/55 L 94 L 05/10/20 00:00 97.3 F L 66 18 91/50 L 93 L 05/09/20 19:54 98.2 F 96 18 114/68 95 Weight Admit Weight 59.874 kg Weight 59.874 kg Result Diagrams: 05/09/20 06:40 05/09/20 06:40 Phys Exam - Physical Examination Constitutional: NAD Neck: supple Respiratory: no wheezing, clear to auscultation bilateral Cardiovascular: RRR, no significant murmur Gastrointestinal: soft, positive bowel sounds diffusely tender to palpation Musculoskeletal: no edema Neurological: non-focal, moves all 4 limbs Psychiatric: normal affect, A&O x 3 Dx/Plan - Plan Plan: Patient is a 59F with PMHx of chronic pancreatitis, HTN, and anxiety that is admitted for: #Acute on chronic pancreatitis -hx of chronic pancreatitis, diagnosed 2013; has seen GI in the past but not lately -has had a cholecystectomy, endorses "healthy diet" that is low in fat, and has 1-2 glasses wine/week -lipase 33, amylase 42 -Abd/pelvis CT: focal pancreatitis in insular portion of the pancreas -BISAP score 1 -advancing diet as tolerated today, patient can have any food by request, Dietary consulted 05/08 to discuss options with patient has she has been refusing any type of food/diet -s/p 2L in ED, NS @ 200 x 8 hours, now Maintenance IVF NS @ 150 until tolerating PO -2 mg morphine q4h prn for pain; patient refuses Motrin for pain control -jack Bentyl this morning for additional pain management -will agree to Tylenol for fever management -Zofran prn for nausea -FLP wnl, A1C 5.0 -TSH 4.94, low T3; FT4 wnl, T4 wnl -obtain CT W/Contrast Abdomen/Pelvis (will perform 9 AM on 05/10) due to new fever to rule out possible pancreatic abscess -patient with iodine allergy, will pre-treat with prednisone and benadryl per protocol -consider adding Ensure to diet since pt not tolerating any po intake #COVID19 infection suspected -patient tested negative for COVID x 2 since admission, however new symptoms on 05/08 of fever, cough, sore throat, myalgias, loss of sense of taste or smell so will place on isolation precautions -Flu negative -consider repeat COVID test tomorrow and start txt with steroids. Will not qualify for other treatments without positive test #Transaminitis, acute -admission labs: AST 21, ALT 14, Alk phos 108 -labs 05/05: AST 393, ALT 262, Alk Phos 241 -repeat serial CMP's shows trending down -if new rising/elevation then consider MRCP -acute Hepatitis panel negative -RUQ U/S shows fatty liver and trace fluid in Santana's pouch #HTN -continue home meds #Bradycardia -possibly due to morphine; will hold Betaxolol -since holding medication her HR has been in 70s -patient gives conflicting history at times stating she has chronic, asymptomatic bradycardia and at other times states she has chronic tachycardia with runs up to 180 bpm. Followed by first coat sander Dr. Avila in [place], [place]. Review of past hospitalizations at [facility] show HR in 60s-80s -will continue to monitor #Anxiety -will hold clonazepam as patient reports she does not take this every day Diet: Regular DVTppx: lovenox- held, will restart after CT today CODE: Full PCP: [facility] Dispo: Stable, admitted to inpatient on medical unit. Continue pain control. Advance diet today as tolerated. CT w/contrast of abdomen/pelvis to be performed on 05/10 after pre-treatment due to iodine allergy. Addendum - Attending - Attending Attestation Date/Time: 05/10/20 1619 I personally evaluated the patient and discussed the management with Dr. Gaffney. I agree with the History, Examination, Assessment and Plan documented above with any addition or exceptions noted below. Pt set for CT abd/pelvis to r/u pancreatic abscess. She has been pre-treated due to contrast allergy. She is requiring oxygen. She has lost taste/smell and complains of severe myalgias consistent with covid. To date covid swabs are neg ative. Consider retesting in 1-2 days. Titrate O2 as tolerated.
[2020-05-10] MEDS ORDERED: diphenhydrAMINE 50 MG CAP PO SCH (08:00)
[2020-05-10] MEDS: Dicyclomine 20 MG TAB PO SCH ×4 (08:13→21:36)
[2020-05-10] MEDS: Amlodipine 10 MG TAB PO SCH (08:13)
[2020-05-10] MEDS: Senokot S 8.6-50 MG TAB PO SCH ×2 (08:13→21:36)
[2020-05-10] MEDS: Lisinopril 20 MG TAB PO SCH (08:14)
[2020-05-10] MEDS ORDERED: Iopamidol-370 76% 500 ML 1 ML ONE (11:24)
--- NOTE | 2020-05-10 11:25 | CT ---
CT Abdomen Pelvis W Con History: Abdominal pain Comparison: Gallbladder ultrasound [address] abdomen and pelvis without contrast 6 days prior. Findings: Likely intracapsular rupture left breast implant. Small pleural effusions. Mild fatty atrophy of the pancreas. Slightly improving inflammatory stranding along the pancreatic he ad and uncinate process. Portal vein is patent. No hepatic mass. Small volume free fluid within the pelvis. No dilated loops of large or small bowel. The aortoiliac contour is nonaneurysmal. No hydronephrosis. Mildly patulous left renal pelvis. The ex am was performed in delayed phase of contrast as there is contrast within the renal collecting systems. No intrahepatic or extra hepatic biliary ductal dilatation. Celiac trunk and superior mesenteric pamela bryan are patent. Prior posterior and anterior spinal fusion at L5/S1. No acute osseous abnormality. Impression: 1. Minimal residual inflammatory changes of the pancreatic head and uncinate process. 2. New small pleural fusions with small volume ascites and third spacing of fluid. 3. Intracapsular rupture left breast implant.
[2020-05-10] MEDS ORDERED: Enoxaparin Sodium 40 MG/0.4 ML SYRINGE SC SCH (16:45)
--- NOTE | 2020-05-10 17:31 | EKG ---
Test Reason : Blood Pressure : / mmHG Vent. Rate : 058 BPM Atrial Rate : 058 BPM P-R Int : 156 ms QRS Dur : 086 ms QT Int : 414 ms P-R-T Axes : 064 070 030 degrees QTc Int : 406 ms Sinus bradycardia T wave abnormality, consider anterior ischemia Abnormal ECG Confirmed by CONTRERAS VILLAR, CALEB ([id number]), multimedia editor KASSANDRA RICE ([id number]) on 05/10/2020 5:31:28 PM Referred By: Confirmed By:CALEB CHAIREZ MD
[2020-05-10] MEDS: Zolpidem Tartrate 5 MG TAB PO SCH (21:36)
[2020-05-11] MEDS: Ondansetron PF 4 MG/2 ML Vial IVP PRN ×3 (05:07→20:55)
[2020-05-11] MEDS: Morphine 4 MG/ML VIAL SLOW IVP PRN ×3 (05:07→20:55)
[2020-05-11] MEDS: Sodium Chloride 0.9% 1,000 ML IV SCH ×3 (05:08→19:18)
--- NOTE | 2020-05-11 06:08 | PDOC.FM ---
- Subjective Subjective: Pt awake and alert on exam. She said she was able to eat peaches yesterday, but experienced stomach cramps afterward. Complains that she is not able to eat more because the food is not warm and she is not allowed to heat it up. She states that she has a history of anorexia since her child of SIDS many years ago. In periods of high stress, she tends to restrict her diet as a means of "control". She tolerated her CT scan yesterday. Continues to complain of diffuse myalgias and cough. She had a period in the fall where she had same symptoms and was tested twice for COVID, both negative. She has had several COVID + contacts through work in recent weeks. - Objective Vital Signs & Weight: Vital Signs (12 hours) Temp Pulse Resp BP Pulse Ox 05/11/20 04:00 97.7 F 58 L 18 102/61 99 05/11/20 00:00 97.4 F L 56 L 18 94/55 L 93 L 05/10/20 20:00 97.6 F 61 18 105/62 93 L Weight Admit Weight 59.874 kg Weight 59.874 kg Result Diagrams: 05/09/20 06:40 05/11/20 08:37 Phys Exam - Physical Examination Constitutional: NAD Neck: supple, full ROM Respiratory: no wheezing, clear to auscultation bilateral Cardiovascular: RRR, no significant murmur Gastrointestinal: soft, no distention Musculoskeletal: no edema Neurological: non-focal, moves all 4 limbs Psychiatric: normal affect, A&O x 3 Dx/Plan - Plan Plan: Patient is a 59F with PMHx of chronic pancreatitis, HTN, and anxiety that is admitted for: #Acute on chronic pancreatitis -hx of chronic pancreatitis, diagnosed 2013; has seen GI in the past but not lately -has had a cholecystectomy, endorses "healthy diet" that is low in fat, and has 1-2 glasses wine/week -lipase 33, amylase 42 -Abd/pelvis CT: focal pancreatitis in insular portion of the pancreas -BISAP score 1 -advancing diet as tolerated today, patient can have any food by request, Dietary consulted 05/08 to discuss options with patient has she has been refusing any type of food/diet -s/p 2L in ED, NS @ 200 x 8 hours, now Maintenance IVF NS @ 150 until tolerating PO -pain regimen: 2mg morphine prn, bentyl, tylenol -Zofran prn for nausea -FLP wnl, A1C 5.0 -TSH 4.94, low T3; FT4 wnl, T4 wnl -CT Abd/Pelv: inflammatory changes of pancreatic head and uncinate process, small pleural effusions, intracapsular rupture of L breast implant #COVID19 infection suspected -patient tested negative for COVID x 2 since admission, however new symptoms on 05/08 of fever, cough, sore throat, myalgias, loss of sense of taste or smell so will place on isolation precautions -Flu negative -was on 2L NC, while I was in the room, I turned it off and her sats stayed above 97%. Will monitor throughout the day. -will order COVID abs -prn anti-tussive -steroids started today #Transaminitis, resolved -admission labs: AST 21, ALT 14, Alk phos 108 -labs 05/05: AST 393, ALT 262, Alk Phos 241 -repeat CMP today showed normal AST/ALT -acute Hepatitis panel negative -RUQ U/S shows fatty liver and trace fluid in Santana's pouch #HTN -continue home meds #Bradycardia -possibly due to morphine; will hold Betaxolol -patient gives conflicting history at times stating she has chronic, asymptomatic bradycardia and at other times states she has chronic tachycardia with runs up to 180 bpm. Followed by spring intern Dr. Avila in [place], [place]. Review of past hospitalizations at [facility] show HR in 60s-80s -will continue to monitor #Anxiety -will hold clonazepam as patient reports she does not take this every day Diet: Regular DVTppx: lovenox- held, will restart after CT today CODE: Full PCP: [facility] Dispo: Stable, admitted to inpatient on medical unit. Continue pain control. Encourage po intake. Addendum - Attending - Attending Attestation Date/Time: 05/11/20 2134 I personally evaluated the patient and discussed the management with Dr. Gaffney. I agree with the History, Examination, Assessment and Plan documented above with any addition or exceptions noted below. Alk phos continues to downtrend. Encouraged pt to increase PO intake today. Will wean from O2. CT showed no pancreatic abscess. Loss of taste/smell and myalgias are consistent with covid and pt does have known exposure but test to date has been negative.
[2020-05-11] MEDS: Dexamethasone 4 MG TAB PO SCH (08:00)
[2020-05-11] MEDS: Senokot S 8.6-50 MG TAB PO SCH ×2 (08:00→20:56)
[2020-05-11] MEDS: Dicyclomine 20 MG TAB PO SCH ×4 (08:00→20:56)
[2020-05-11] MEDS: Lisinopril 20 MG TAB PO SCH (08:00)
[2020-05-11] MEDS: Amlodipine 10 MG TAB PO SCH (08:01)
[2020-05-11] MEDS: Enoxaparin Sodium 40 MG/0.4 ML SYRINGE SC SCH (08:02)
[2020-05-11] MEDS: Polyethylene Glycol 3350 17 GM Packet PO SCH (08:02)
[2020-05-11 09:08] LABS: ALT (SGPT) 50 U/L (8-55); AST (SGOT) 18 U/L (5-34); Albumin 3.5 g/dL (3.4-4.8); Alkaline Phosphatase 167 U/L (40-110); Anion Gap 11 mmol/L (10-20); BUN (Urea Nitrogen) 7 mg/dL (9.8-20.1); Bilirubin, Total 0.3 mg/dL (0.2-1.2); Calc. Creatinine Clearance 72 mL/min (70-130); Calcium 9.1 mg/dL (7.8-10.44); Carbon Dioxide 21 mmol/L (23-31); Chloride 115 mmol/L (98-107); Glucose 105 mg/dL (80-115); Potassium 3.1 mmol/L (3.5-5.1); Protein, Total 6.5 g/dL (5.8-8.1); Sodium 144 mmol/L (136-145)
[2020-05-11] MEDS ORDERED: Potassium Chloride 20 MEQ TAB PO SCH (09:15)
[2020-05-11] MEDS: Benzonatate 100 MG CAP PO PRN (12:32)
[2020-05-11 17:33] LABS: SARS-CoV-2 IgG Ab Non-Reactive (NonReactive); SARS-CoV-2 IgG Index 0.07 S/CO (< 1.40)
[2020-05-11] MEDS: Zolpidem Tartrate 5 MG TAB PO SCH (22:56)
[2020-05-12] MEDS: Sodium Chloride 0.9% 1,000 ML IV SCH ×2 (01:28→08:17)
[2020-05-12] MEDS: Morphine 4 MG/ML VIAL SLOW IVP PRN ×4 (04:07→18:37)
[2020-05-12] MEDS: Ondansetron PF 4 MG/2 ML Vial IVP PRN ×3 (04:07→17:50)
[2020-05-12 05:50] LABS: Anion Gap 11 mmol/L (10-20); BUN (Urea Nitrogen) 6 mg/dL (9.8-20.1); Calc. Creatinine Clearance 76 mL/min (70-130); Calcium 8.6 mg/dL (7.8-10.44); Carbon Dioxide 21 mmol/L (23-31); Chloride 115 mmol/L (98-107); Glucose 114 mg/dL (80-115); Potassium 3.4 mmol/L (3.5-5.1); Sodium 144 mmol/L (136-145)
--- NOTE | 2020-05-12 06:25 | PDOC.FM ---
- Subjective Subjective: Patient reporting poor appetite with persistent loss of taste. Reports cramping sensation in abdomen and nausea with food, able to tolerate PO liquid intake. Also reporting constipation. Denies CP, endorses cough, dyspnea. No acute events overnight. - Objective MAR Reviewed: Yes Vital Signs & Weight: Vital Signs (12 hours) Temp Pulse Resp BP Pulse Ox 05/11/20 20:13 97.4 F L 66 18 118/71 95 05/11/20 20:00 95 Weight Admit Weight 59.874 kg Weight 59.874 kg Result Diagrams: 05/09/20 06:40 05/12/20 05:19 Phys Exam - Physical Examination Constitutional: NAD Respiratory: no wheezing, no rales, no rhonchi, clear to auscultation bilateral Cardiovascular: RRR, no significant murmur Gastrointestinal: soft mild epigastric tenderness with palpation, no rebound/guarding Musculoskeletal: no edema Neurological: non-focal, moves all 4 limbs Dx/Plan - Plan Plan: Patient is a 59F with PMHx of chronic pancreatitis, HTN, and anxiety that is admitted for: Acute on chronic pancreatitis -hx of chronic pancreatitis, diagnosed 2013; has seen GI in the past but not lately 2/2 lack of insurance -has had a cholecystectomy, endorses "healthy diet" that is low in fat, and has 1-2 glasses wine/week -BISAP score 1 -advancing diet as tolerated today, patient can have any food by request, Dietary consulted 05/08 to discuss options with patient has she has been refusing any type of food/diet -pain regimen: 2mg morphine prn, bentyl, tylenol -Zofran prn for nausea -FLP wnl, A1C 5.0 -TSH 4.94, low T3; FT4 wnl, T4 wnl -CT Abd/Pelv: inflammatory changes of pancreatic head and uncinate process, small pleural effusions, intracapsular rupture of L breast implant - Encouraged PO fluid intake in hopes of DCing IVF COVID19 infection suspected -patient tested negative for COVID x 2 since admission, Abs negative, however symptoms on 05/08 of fever, cough, sore throat, myalgias, loss of sense of taste or smell so will place on isolation precautions -Flu negative -prn anti-tussive -Decadron 6 mg QD Transaminitis, resolved -admission labs: AST 21, ALT 14, Alk phos 108 -acute Hepatitis panel negative -RUQ U/S shows fatty liver and trace fluid in Santana's pouch HTN -continue home meds Bradycardia -possibly due to morphine; will hold Betaxolol -patient gives conflicting history at times stating she has chronic, asymptomatic bradycardia and at other times states she has chronic tachycardia with runs up to 180 bpm. Followed by health policy nurse Dr. Avila in [place], [place]. Review of past hospitalizations at [facility] show HR in 60s-80s -will continue to monitor Anxiety -will hold clonazepam as patient reports she does not take this every day Diet: Regular DVTppx: lovenox- held, will restart after CT today CODE: Full PCP: [facility] Dispo: Stable, admitted to inpatient on medical unit. Continue pain control. Encourage po intake. Addendum - Attending - Attending Attestation Date/Time: 05/12/20 1410 I personally evaluated the patient and discussed the management with Dr. Gutiérrez. I agree with the History, Examination, Assessment and Plan documented above with any addition or exceptions noted below. D/C IV fluids. if she can tolerate PO intake, she can d/c home. COVID negative x2 but clinically has COVID. Will need minimum 10 days home quarantine
[2020-05-12] MEDS: Dicyclomine 20 MG TAB PO SCH ×2 (08:17→20:25)
[2020-05-12] MEDS: Dexamethasone 4 MG TAB PO SCH (08:17)
[2020-05-12] MEDS: Amlodipine 10 MG TAB PO SCH (08:17)
[2020-05-12] MEDS: Enoxaparin Sodium 40 MG/0.4 ML SYRINGE SC SCH (08:18)
[2020-05-12] MEDS: Senokot S 8.6-50 MG TAB PO SCH ×2 (08:18→20:25)
[2020-05-12] MEDS: Lisinopril 20 MG TAB PO SCH (08:18)
[2020-05-12] MEDS: Polyethylene Glycol 3350 17 GM Packet PO SCH (08:35)
[2020-05-12] MEDS: Simethicone Chewable 80 MG TAB PO SCH ×3 (12:41→22:32)
[2020-05-12] MEDS: Zolpidem Tartrate 5 MG TAB PO SCH (20:25)
[2020-05-13] MEDS: Morphine 4 MG/ML VIAL SLOW IVP PRN ×2 (00:06→06:45)
[2020-05-13] MEDS: Ondansetron PF 4 MG/2 ML Vial IVP PRN ×3 (00:06→12:13)
--- NOTE | 2020-05-13 06:50 | PDOC.FM ---
- Subjective Subjective: Feeling well this AM, still reports abdominal pain. Refused Miralax yesterday because it hasn't helped in the past. Was able to tolerate PO intake yesterday. Endorses minimal nausea, dyspnea, coughing. - Objective MAR Reviewed: Yes Vital Signs & Weight: Vital Signs (12 hours) Temp Pulse Resp BP Pulse Ox 05/12/20 20:16 97.4 F L 60 18 116/70 96 05/12/20 20:00 96 Weight Admit Weight 59.874 kg Weight 59.874 kg I&O: 05/11/20 05/12/20 05/13/20 06:59 06:59 06:59 Intake Total 3920 Balance 3920 Result Diagrams: 05/09/20 06:40 05/13/20 09:34 Phys Exam - Physical Examination Constitutional: NAD Respiratory: no wheezing, no rales, no rhonchi, clear to auscultation bilateral Cardiovascular: RRR, no significant murmur, no rub Gastrointestinal: soft mildly TTP, mild distension Dx/Plan - Plan Plan: Patient is a 59F with PMHx of chronic pancreatitis, HTN, and anxiety that is admitted for: Acute on chronic pancreatitis -hx of chronic pancreatitis, diagnosed 2013; has seen GI in the past but not lately 2/2 lack of insurance -has had a cholecystectomy, endorses "healthy diet" that is low in fat, and has 1-2 glasses wine/week -BISAP score 1 -advancing diet as tolerated today, patient can have any food by request, Dietary consulted 05/08 to discuss options with patient has she has been refusing any type of food/diet -pain regimen: 2mg morphine prn, bentyl, tylenol -Zofran prn for nausea -FLP wnl, A1C 5.0 -TSH 4.94, low T3; FT4 wnl, T4 wnl -CT Abd/Pelv: inflammatory changes of pancreatic head and uncinate process, small pleural effusions, intracapsular rupture of L breast implant COVID19 infection suspected -patient tested negative for COVID x 2 since admission, Abs negative, however symptoms on 05/08 of fever, cough, sore throat, myalgias, loss of sense of taste or smell so will place on isolation precautions -Flu negative -prn anti-tussive -Decadron 6 mg QD Transaminitis, resolved -admission labs: AST 21, ALT 14, Alk phos 108 -acute Hepatitis panel negative -RUQ U/S shows fatty liver and trace fluid in Santana's pouch HTN -continue home meds Bradycardia -possibly due to morphine; will hold Betaxolol -patient gives conflicting history at times stating she has chronic, asymptomatic bradycardia and at other times states she has chronic tachycardia with runs up to 180 bpm. Followed by association executive Dr. Avila in [place], [place]. Review of past hospitalizations at [facility] show HR in 60s-80s -will continue to monitor Anxiety -will hold clonazepam as patient reports she does not take this every day Constipation - Scheduled stool softeners - Milk of magnesium today - PRN enema - GI f/u outpatient Diet: Regular DVTppx: lovenox- held, will restart after CT today CODE: Full PCP: [facility] Dispo: Stable, admitted to inpatient on medical unit. Continue pain control. Encourage po intake. Hope to DC today. Addendum - Attending - Attending Attestation Date/Time: 05/13/20 2252 I personally evaluated the patient and discussed the management with Dr. Gutiérrez. I agree with the History, Examination, Assessment and Plan documented above with any addition or exceptions noted below. D/C morphine since c/o constipation. Added mild of mag and mag citrate to bowel regimen to help with constipation. Reglan for nausea. She is nearing the end of her hospital stay and I anticipate she will go home later today. Quarantine for 10 total days.
[2020-05-13] MEDS: Dicyclomine 20 MG TAB PO SCH (08:27)
[2020-05-13] MEDS: Dexamethasone 4 MG TAB PO SCH (08:27)
[2020-05-13] MEDS: Senokot S 8.6-50 MG TAB PO SCH (08:27)
[2020-05-13] MEDS: Lisinopril 20 MG TAB PO SCH (08:27)
[2020-05-13] MEDS: Amlodipine 10 MG TAB PO SCH (08:27)
[2020-05-13] MEDS: Polyethylene Glycol 3350 17 GM Packet PO SCH (08:28)
[2020-05-13] MEDS: Enoxaparin Sodium 40 MG/0.4 ML SYRINGE SC SCH (08:28)
[2020-05-13] MEDS ORDERED: Milk Of Magnesia 30 ML UDCUP PO SCH ×2 (09:00→09:30)
[2020-05-13] MEDS ORDERED: Fleet Enema 133 ML BOT PR SCH (09:00)
[2020-05-13] MEDS: Simethicone Chewable 80 MG TAB PO SCH ×2 (09:13→13:20)
[2020-05-13] MEDS ORDERED: Magnesium Citrate 300 ML BOT PO SCH (09:30)
[2020-05-13] MEDS ORDERED: Metoclopramide HCl 10 MG/2 ML VIAL IVP SCH ×2 (09:30→14:00)
[2020-05-13 10:17] LABS: Anion Gap 12 mmol/L (10-20); BUN (Urea Nitrogen) 7 mg/dL (9.8-20.1); Calc. Creatinine Clearance 70 mL/min (70-130); Calcium 9.3 mg/dL (7.8-10.44); Carbon Dioxide 22 mmol/L (23-31); Chloride 111 mmol/L (98-107); Glucose 90 mg/dL (80-115); Potassium 3.1 mmol/L (3.5-5.1); Sodium 142 mmol/L (136-145)
[2020-05-13] MEDS ORDERED: Potassium Chloride 20 MEQ TAB PO SCH (12:45)
[2020-05-13 14:51] VITALS: BP 125/75; TEMP 98
--- NOTE | 2020-05-14 10:51 | DIS ---
DATE OF ADMISSION: 05/04/2020 DATE OF DISCHARGE: 05/13/2020 RESIDENT: Jose Gutiérrez MD ADMITTING ATTENDING: Trevon Mejia MD DISCHARGE ATTENDING: Luis Potter MD CONSULTS: None. PROCEDURES: The patient had an abdomen and pelvis CT on admission that showed questionable stranding surrounding the insular portion of the pancreas. The patient had right upper quadrant ultrasound showing possible fatty liver disease and trace fluid in Morison's pouch. The patient received another abdomen and pelvis CT on 05/10/2020 showing minimal inflammatory changes of pancreatic head and uncinate process with small volume ascites and pleural effusions with 3rd spacing of fluid. The patient also incidentally had intracapsular rupture of the left breast implant. PRIMARY DIAGNOSIS: Acute on chronic pancreatitis. SECONDARY DIAGNOSES: 1. Suspected COVID-19 infection. 2. Transaminitis. 3. Hypertension. 4. Bradycardia. 5. Anxiety. 6. Constipation. DISCHARGE MEDICATIONS: 1. Lotrel 10/20 mg capsule one p.o. daily. 2. Tessalon 100 mg p.o. q.4 hours p.r.n., 20 capsules. 3. p.o. daily. 4. Klonopin 0.5 mg p.o. b.i.d. 5. Hydrochlorothiazide 25 mg p.o. daily. 6. Magnesium citrate 300 mL p.o. p.r.n. for constipation. 7. Milk of magnesia 30 mL p.o. daily p.r.n. for constipation. 8. Meclizine 25 mg p.o. daily p.r.n. 9. Reglan 10 mg p.o. t.i.d. p.r.n. for 7 days for nausea. 10. Protonix 40 mg p.o. daily. 11. MiraLAX 17 g p.o. daily p.r.n. 12. Senokot one tablet p.o. b.i.d. p.r.n. 13. Simethicone 80 mg p.o. p.r.n. 14. Tizanidine 4 mg p.o. b.i.d. p.r.n. 15. Ambien 10 mg p.o. at bedtime p.r.n. DISCONTINUED MEDICATIONS: None. HISTORY OF PRESENT ILLNESS/HOSPITAL COURSE: The patient is a 59-year-old female with past medical history of chronic pancreatitis and hypertension, who presented to the ER due to 2 days of abdominal pain radiating to her back. It felt very similar to episodes of acute pancreatitis that typically happened twice a year. On admission, lipase was [address] results as above. The patient was admitted and treated as pancreatitis. On 05/08, the patient developed symptoms consistent with COVID including loss of taste, cough, and shortness of breath. The patient never required oxygen supplementation while inpatient. The patient had a difficult time with constipation and abdominal pain. She reports that she previously took Linzess, which was the only thing that helped with her . She followed with a GI doctor, but has not seen them in 5 years. The patient eventually had bowel movement after taking MiraLAX, Senokot, milk of magnesia, and magnesium citrate. The patient was able to tolerate p.o. intake by the time of discharge. DISPOSITION: Stable. DISCHARGE INSTRUCTIONS: 1. Location: Home. 2. Diet: Regular, as tolerated. 3. Activity: As tolerated. 4. Followup: The patient to follow up with PCP within 2 weeks of discharge. The patient may need GI referral in the future if constipation continues to be this difficult to control. Job ID: [id number]
== END 2020-05-13 17:36 | disposition home or self-care (01) | DRG 440 ==
LOC: ERS 15:32 → T4-B 18:14
PROVIDERS: ADMIT Emergency Medicine; ATTEND Emergency Medicine
PROC: 8E0ZXY6 Isolation (ICD-10-PCS; principal; 2020-05-09)
DX: K85.00 Idiopathic acute pancreatitis without necrosis or infection (principal); Z20.822 Contact with and (suspected) exposure to COVID-19; I10 Essential (primary) hypertension; K86.1 Other chronic pancreatitis; R74.01 Elevation of levels of liver transaminase levels; R00.1 Bradycardia, unspecified; F41.9 Anxiety disorder, unspecified; F32.9 Major depressive disorder, single episode, unspecified; Z96.653 Presence of artificial knee joint, bilateral; R43.9 Unspecified disturbances of smell and taste; R05 Cough; R06.02 Shortness of breath; K59.00 Constipation, unspecified; Z90.49 Acquired absence of other specified parts of digestive tract; Z90.710 Acquired absence of both cervix and uterus; Z88.5 Allergy status to narcotic agent; Z91.041 Radiographic dye allergy status; Z79.899 Other long term (current) drug therapy; Z98.1 Arthrodesis status; Z80.51 Family history of malignant neoplasm of kidney; Z81.8 Family history of other mental and behavioral disorders; Z83.3 Family history of diabetes mellitus; Z82.49 Family history of ischemic heart disease and other diseases of the circulatory system
CPT/HCPCS: 0240U; 36415; 36416; 74176; 74177; 76705; 80048; 80053; 80061; 80074; 81003; 81015; 82150; 83036; 83690; 83735; 84436; 84439; 84443; 84481; 84484; 85025; 86769; 87635; 93005; 96374; 96375; 96376; J1650; J2270; J2405; J2765; J3480; J7512; J8540; Q9967; U0003; U0005

== ENCOUNTER 2021-04-20 09:27 | Emergency (ER) | payer SELFPAY ==
[2021-04-20 10:48] LABS: Hemoglobin 15.6 g/dL (12.0-16.0); Mean Corpuscular HGB CONC 30.9 g/dL (32.0-36.0); Mean Corpuscular Hemoglobin 28.1 pg (27.0-31.0); Mean Corpuscular Volume 90.9 fL (78.0-98.0); Mean Platelet Volume 8.8 fL (7.4-10.4); Platelet Count 152 thou/uL (130-400); RBC Distribution Width 11.7 % (11.5-14.5); Red Blood Cell (RBC) Count 5.57 mill/uL (4.20-5.40); White Blood Cell (WBC) Count 5.7 thou/uL (4.8-10.8)
[2021-04-20] MEDS ORDERED: Famotidine/PF 20 mg/2ml Vial ONE (10:55)
[2021-04-20] MEDS ORDERED: methylPREDNISolone Sod Succ 40 MG VIAL ONE (10:55)
[2021-04-20] MEDS ORDERED: diphenhydrAMINE 50 MG/ML VIAL ONE (10:55)
[2021-04-20] MEDS ORDERED: Morphine 4 MG/ML VIAL ONE (10:55)
[2021-04-20] MEDS ORDERED: Promethazine HCl 25 MG/ML VIAL ONE (10:55)
[2021-04-20 11:19] LABS: Band 14 % (5-11); Lymphocytes 31 % (21-51); MDiff Complete? YES; Monocytes 5 % (0-10); Neutrophil 49 % (42-75); Platelet Morphology Comment Appears Adequate; Polychromasia SLIGHT = 2-3 cells (100X) (0-2/hpf)
[2021-04-20 12:32] LABS: ALT (SGPT) 46 U/L (8-55); AST (SGOT) 55 U/L (5-34); Albumin 4.6 g/dL (3.4-4.8); Alkaline Phosphatase 114 U/L (40-110); Anion Gap 16 mmol/L (10-20); BUN (Urea Nitrogen) 17 mg/dL (9.8-20.1); Bilirubin, Total 0.5 mg/dL (0.2-1.2); Calc. Creatinine Clearance 0 mL/min (70-130); Carbon Dioxide 23 mmol/L (23-31); Chloride 107 mmol/L (98-107); Globulin 3.8 g/dL (2.4-3.5); Glucose 92 mg/dL (80-115); Lipase 6 U/L (8-78); Potassium 4.1 mmol/L (3.5-5.1); Protein, Total 8.4 g/dL (5.8-8.1); Sodium 142 mmol/L (136-145)
== END 2021-04-20 13:56 | disposition home or self-care (01) ==
LOC: ERS 09:27
DX: R10.10 Upper abdominal pain, unspecified (principal); I10 Essential (primary) hypertension; Z79.899 Other long term (current) drug therapy
CPT/HCPCS: 36415; 71045; 74177; 80053; 83690; 84484; 85025; 93005; 96365; 96375; J1200; J2270; J2550; J2920; S0028

== ENCOUNTER 2021-10-21 14:12 | Inpatient (IN) | payer OTHER, SELFPAY ==
[2021-10-21] MEDS ORDERED: Iopamidol-370 76% 500 ML 1 ML ONE (14:18)
[2021-10-21 14:31] LABS: #Eosinphils 0.2 thou/uL (0.0-0.7); #Lymphocytes 1.8 thou/uL (1.20-3.40); #Monocytes 1.3 thou/uL (0.11-0.59); #Neutrophils 9.5 thou/uL (1.40-6.50); %Monocytes 9.8 % (0.0-10.0); %Neutrophils 74.3 % (42.0-75.0); Hemoglobin 11.8 g/dL (12.0-16.0); Mean Corpuscular HGB CONC 33.1 g/dL (32.0-36.0); Mean Corpuscular Hemoglobin 34.7 pg (27.0-31.0); Mean Platelet Volume 7.6 fL (7.4-10.4); Platelet Count 326 thou/uL (130-400); RBC Distribution Width 12.1 % (11.5-14.5); Red Blood Cell (RBC) Count 3.39 mill/uL (4.20-5.40); White Blood Cell (WBC) Count 12.7 thou/uL (4.8-10.8)
[2021-10-21 14:45] LABS: ALT (SGPT) 43 U/L (8-55); AST (SGOT) 51 U/L (5-34); Alkaline Phosphatase 142 U/L (40-110); Anion Gap 13 mmol/L (10-20); BUN (Urea Nitrogen) 15 mg/dL (9.8-20.1); Bilirubin, Total 0.3 mg/dL (0.2-1.2); Calc. Creatinine Clearance 0 mL/min (70-130); Calcium 9.7 mg/dL (7.8-10.44); Carbon Dioxide 28 mmol/L (23-31); Chloride 98 mmol/L (98-107); Estimated GFR 97; Globulin 3.5 g/dL (2.4-3.5); Glucose 110 mg/dL (80-115); Lipase 24 U/L (8-78); Potassium 4.4 mmol/L (3.5-5.1); Protein, Total 7.5 g/dL (5.8-8.1); Sodium 135 mmol/L (136-145)
[2021-10-21] MEDS ORDERED: Morphine 4 MG/ML VIAL ONE ×3 (15:44→22:38)
[2021-10-21] MEDS ORDERED: methylPREDNISolone Sod Succ/PF 125 MG/2 ML VIAL ONE (15:44)
[2021-10-21] MEDS ORDERED: diphenhydrAMINE 50 MG/ML VIAL ONE (15:45)
[2021-10-21] MEDS ORDERED: Ondansetron PF 4 MG/2 ML Vial ONE (15:45)
[2021-10-21] MEDS ORDERED: Famotidine/PF 20 mg/2ml Vial ONE (15:45)
[2021-10-21 17:39] LABS: Bacteria/HPF 1+ HPF (None Seen); Bilirubin Negative (Negative); Blood, Urine Negative (Negative); Clarity Turbid (Clear); Glucose, Urine (Dipstick) Normal (Negative); Ketone, Urine Negative (Negative); Leukocyte 500 Leu/uL (Negative); Nitrite Negative (Negative); Protein, Urine (Dipstick) Negative (Neg-Trace); RBC/HPF 0-3 HPF (0-3); Specific Gravity, Urine 1.015 (1.002-1.036); Squamous Epithelial 0-3 HPF (0-3); Urobilinogen Normal mg/dL (Less than 2); WBC/HPF Greater than 50 HPF (0-3)
[2021-10-21] MEDS ORDERED: Ondansetron ODT 4 MG TAB PO PRN (20:38)
[2021-10-21] MEDS ORDERED: Acetaminophen 325 MG TAB PO PRN (20:38)
[2021-10-21] MEDS ORDERED: Acetaminophen 650 MG Suppository PR PRN (20:38)
[2021-10-21] MEDS ORDERED: Sodium Chloride 0.9% 1,000 ML IV SCH (20:45)
[2021-10-21] MEDS: Ondansetron PF 4 MG/2 ML Vial IVP PRN (23:35)
[2021-10-21] MEDS: Sodium Chloride 0.9% 1,000 ML IV SCH (23:38)
[2021-10-22 00:36] VITALS: BMI 24.3
[2021-10-22] MEDS: Morphine 4 MG/ML VIAL SLOW IVP PRN ×5 (03:23→21:02)
[2021-10-22] MEDS: Sodium Chloride 0.9% 1,000 ML IV SCH ×4 (05:31→19:03)
[2021-10-22] MEDS: Ondansetron PF 4 MG/2 ML Vial IVP PRN ×4 (05:31→21:12)
[2021-10-22] MEDS: Enoxaparin Sodium 40 MG/0.4 ML SYRINGE SC SCH (08:09)
[2021-10-22] MEDS ORDERED: HYDROcodone/Acetaminophen 5/325 mg Tablet PO PRN (10:34)
[2021-10-22] MEDS ORDERED: cefTRIAXone\\ROCEPHIN 1 GM VIAL ONE (11:20)
[2021-10-22] MEDS: cefTRIAXone\\ROCEPHIN 1 GM in Sodium Chloride 0.9% 100 ML IVPB SCH (11:25)
[2021-10-23] MEDS: Sodium Chloride 0.9% 1,000 ML IV SCH ×3 (01:12→16:19)
[2021-10-23] MEDS: Morphine 4 MG/ML VIAL SLOW IVP PRN ×5 (01:13→21:56)
[2021-10-23] MEDS: Ondansetron PF 4 MG/2 ML Vial IVP PRN ×4 (03:25→21:56)
[2021-10-23] MEDS: Enoxaparin Sodium 40 MG/0.4 ML SYRINGE SC SCH (08:46)
[2021-10-23] MEDS ORDERED: cefTRIAXone\\ROCEPHIN 1 GM VIAL ONE (10:35)
[2021-10-23] MEDS: cefTRIAXone\\ROCEPHIN 1 GM in Sodium Chloride 0.9% 100 ML IVPB SCH (10:37)
[2021-10-24] MEDS: Sodium Chloride 0.9% 1,000 ML IV SCH ×3 (01:11→17:45)
[2021-10-24] MEDS: Morphine 4 MG/ML VIAL SLOW IVP PRN ×5 (02:51→23:01)
[2021-10-24] MEDS: Ondansetron PF 4 MG/2 ML Vial IVP PRN ×3 (06:29→20:38)
[2021-10-24] MEDS: Nitrofurantoin Monohyd/M-Cryst 100 MG CAP PO SCH ×2 (08:37→20:30)
[2021-10-24] MEDS: Enoxaparin Sodium 40 MG/0.4 ML SYRINGE SC SCH (08:37)
[2021-10-24 08:46] LABS: Anion Gap 18 mmol/L (10-20); BUN (Urea Nitrogen) 9 mg/dL (9.8-20.1); Calc. Creatinine Clearance 86 mL/min (70-130); Calcium 9.6 mg/dL (7.8-10.44); Carbon Dioxide 21 mmol/L (23-31); Chloride 105 mmol/L (98-107); Estimated GFR 98; Glucose 71 mg/dL (80-115); Lipase 16 U/L (8-78); Potassium 3.5 mmol/L (3.5-5.1); Sodium 140 mmol/L (136-145)
[2021-10-24 15:47] LABS: #Eosinphils 0.3 thou/uL (0.0-0.7); #Lymphocytes 2.3 thou/uL (1.20-3.40); #Monocytes 0.6 thou/uL (0.11-0.59); #Neutrophils 2.5 thou/uL (1.40-6.50); %Basophils 0.6 % (0.0-1.0); %Eosinophils 4.9 % (0.0-10.0); %Lymphocytes 40.3 % (21.0-51.0); %Monocytes 9.8 % (0.0-10.0); %Neutrophils 44.5 % (42.0-75.0); Mean Corpuscular HGB CONC 34.3 g/dL (32.0-36.0); Mean Corpuscular Hemoglobin 30.3 pg (27.0-31.0); Mean Corpuscular Volume 88.4 fL (78.0-98.0); Mean Platelet Volume 9.5 fL (7.4-10.4); Platelet Count 139 thou/uL (130-400); RBC Distribution Width 11.9 % (11.5-14.5); White Blood Cell (WBC) Count 5.6 thou/uL (4.8-10.8)
[2021-10-24] MEDS ORDERED: Promethazine HCl 25 MG in Sodium Chloride 0.9% 50 ML IVPB PRN (16:03)
[2021-10-25] MEDS: Sodium Chloride 0.9% 1,000 ML IV SCH ×5 (02:53→22:01)
[2021-10-25] MEDS: Ondansetron PF 4 MG/2 ML Vial IVP PRN ×3 (05:33→20:02)
[2021-10-25] MEDS: Morphine 4 MG/ML VIAL SLOW IVP PRN ×3 (05:35→20:02)
[2021-10-25] MEDS: Nitrofurantoin Monohyd/M-Cryst 100 MG CAP PO SCH ×2 (08:31→20:00)
[2021-10-25] MEDS: Enoxaparin Sodium 40 MG/0.4 ML SYRINGE SC SCH (08:31)
[2021-10-25] MEDS: hydrALAZINE 20 MG/ML VIAL SLOW IVP PRN (22:29)
[2021-10-26] MEDS: Morphine 4 MG/ML VIAL SLOW IVP PRN ×4 (02:53→20:26)
[2021-10-26] MEDS: Ondansetron PF 4 MG/2 ML Vial IVP PRN ×4 (02:53→20:24)
[2021-10-26] MEDS: hydrALAZINE 20 MG/ML VIAL SLOW IVP PRN (08:06)
[2021-10-26] MEDS: Nitrofurantoin Monohyd/M-Cryst 100 MG CAP PO SCH ×2 (08:07→20:23)
[2021-10-26] MEDS: Sodium Chloride 0.9% 1,000 ML IV SCH ×4 (08:07→22:56)
[2021-10-26] MEDS: Enoxaparin Sodium 40 MG/0.4 ML SYRINGE SC SCH (08:07)
[2021-10-26] MEDS: Amlodipine 5 MG TAB PO SCH (09:33)
[2021-10-27] MEDS: Ondansetron PF 4 MG/2 ML Vial IVP PRN ×2 (02:10→08:05)
[2021-10-27] MEDS: Morphine 4 MG/ML VIAL SLOW IVP PRN ×2 (02:12→08:04)
[2021-10-27] MEDS: Sodium Chloride 0.9% 1,000 ML IV SCH (02:15)
[2021-10-27] MEDS: Enoxaparin Sodium 40 MG/0.4 ML SYRINGE SC SCH (07:59)
[2021-10-27] MEDS: Nitrofurantoin Monohyd/M-Cryst 100 MG CAP PO SCH (07:59)
[2021-10-27] MEDS: Amlodipine 5 MG TAB PO SCH (07:59)
[2021-10-27 09:56] LABS: #Eosinphils 0.5 thou/uL (0.0-0.7); #Lymphocytes 1.8 thou/uL (1.20-3.40); #Monocytes 0.5 thou/uL (0.11-0.59); #Neutrophils 3.9 thou/uL (1.40-6.50); %Basophils 0.3 % (0.0-1.0); %Eosinophils 7.3 % (0.0-10.0); %Lymphocytes 27.1 % (21.0-51.0); %Monocytes 7.4 % (0.0-10.0); Hemoglobin 14.5 g/dL (12.0-16.0); Mean Corpuscular HGB CONC 33.8 g/dL (32.0-36.0); Mean Corpuscular Hemoglobin 29.8 pg (27.0-31.0); Mean Corpuscular Volume 88.2 fL (78.0-98.0); Mean Platelet Volume 9.3 fL (7.4-10.4); Platelet Count 156 thou/uL (130-400); RBC Distribution Width 12.1 % (11.5-14.5); Red Blood Cell (RBC) Count 4.87 mill/uL (4.20-5.40); White Blood Cell (WBC) Count 6.8 thou/uL (4.8-10.8)
[2021-10-27 10:14] LABS: Anion Gap 20 mmol/L (10-20); BUN (Urea Nitrogen) 7 mg/dL (9.8-20.1); Calc. Creatinine Clearance 94 mL/min (70-130); Carbon Dioxide 12 mmol/L (23-31); Chloride 110 mmol/L (98-107); Estimated GFR 100; Glucose 67 mg/dL (80-115); Potassium 3.4 mmol/L (3.5-5.1); Sodium 139 mmol/L (136-145)
[2021-10-27] MEDS ORDERED: Potassium Chloride 20 MEQ TAB PO SCH (10:30)
[2021-10-27 11:55] VITALS: BP 176/100; TEMP 98
== END 2021-10-27 12:43 | disposition home or self-care (01) | DRG 439 ==
LOC: ERS 14:12 → T4-A 20:19
PROVIDERS: ADMIT Internal Medicine; ATTEND Internal Medicine
DX: K85.90 Acute pancreatitis without necrosis or infection, unspecified (principal); N13.6 Pyonephrosis; E87.1 Hypo-osmolality and hyponatremia; N39.0 Urinary tract infection, site not specified; Z16.23 Resistance to quinolones and fluoroquinolones; Z20.822 Contact with and (suspected) exposure to COVID-19; K86.1 Other chronic pancreatitis; Z96.653 Presence of artificial knee joint, bilateral; F32.A Depression, unspecified; F41.9 Anxiety disorder, unspecified; I10 Essential (primary) hypertension; B95.61 Methicillin susceptible Staphylococcus aureus infection as the cause of diseases classified elsewhere; I80.8 Phlebitis and thrombophlebitis of other sites; E87.6 Hypokalemia; Z98.1 Arthrodesis status; Z90.49 Acquired absence of other specified parts of digestive tract; Z90.710 Acquired absence of both cervix and uterus; Z88.5 Allergy status to narcotic agent; Z91.041 Radiographic dye allergy status; Z79.899 Other long term (current) drug therapy
CPT/HCPCS: 36415; 74177; 80048; 80053; 81003; 81015; 83690; 85025; 87077; 87086; 87186; 96361; 96372; 96374; 96375; 96376; J0360; J0696; J1200; J1650; J2270; J2405; J2550; J2930; J3490; J7050; Q9967; S0028; U0003; U0005